=== PATIENT | female | born 1970 | race Caucasian/White ===

== ENCOUNTER 2018-04-05 12:36 | Inpatient (IN) | payer MEDICAID, OTHER ==
[2018-04-05] MEDS ORDERED: Sodium Chloride 0.9% 1,000 ML IV ONE (13:18)
--- NOTE | 2018-04-05 13:18 | C.PDOC ---
History Of Present Illness 47 year old female presents to the ED with complaints of RUQ pain for 5 days. Pain is described as constant, localized, and worsening since onset. Associated with nausea and vomiting. Pain is worse after eating. Patient also reports a subjective fever. Otherwise no diarrhea, chills, or other complaints. PMH hx of kidney stones, L RENAL CYSTS Time Seen by Provider: 04/05/18 13:14 Chief Complaint (Nursing): Abdominal Pain History Per: Patient History/Exam Limitations: no limitations Onset/Duration Of Symptoms: Days Current Symptoms Are (Timing): Still Present Location Of Pain/Discomfort: RUQ Radiation Of Pain To:: None Associated Symptoms: Nausea, Vomiting Exacerbating Factors: Food Past Medical History Reviewed: Historical Data, Nursing Documentation, Vital Signs Vital Signs: Last Vital Signs Temp 99.9 F H 04/05/18 17:24 Pulse 110 H 04/05/18 17:24 Resp 22 04/05/18 17:24 BP 114/69 04/05/18 17:24 Pulse Ox 99 04/05/18 18:16 - Medical History PMH: Kidney Stones Other PMH: Left renal cysts Family History: States: No Known Family Hx - Social History Hx Tobacco Use: No Hx Alcohol Use: No Hx Substance Use: No Review Of Systems Except As Marked, All Systems Reviewed And Found Negative. Constitutional: Positive for: Fever Respiratory: Negative for: Shortness of Breath Gastrointestinal: Positive for: Nausea, Vomiting, Abdominal Pain. Negative for : Diarrhea, Hematochezia Genitourinary: Negative for: Dysuria, Frequency Musculoskeletal: Negative for: Back Pain Physical Exam - Physical Exam Appears: In Acute Distress (moderate painful distress), Other (Active vomiting on examination) Skin: Normal Color, Warm, No Rash Head: Atraumatic, Normacephalic Eye(s): bilateral: Normal Inspection Oral Mucosa: Moist Neck: Normal ROM Chest: Symmetrical Cardiovascular: Rhythm Regular, No Murmur Respiratory: Normal Breath Sounds, No Rales, No Rhonchi, No Wheezing Gastrointestinal/Abdominal: Soft, Tenderness (to right upper quadrant), No Guarding, No Rebound, Other (obese abdomen) Back: Normal Inspection Extremity: Bilateral: Atraumatic, Normal Color And Temperature, Normal ROM Pulses: Left Radial: Normal, Right Radial: Normal Neurological/Psych: Oriented x3, Normal Speech ED Course And Treatment - Laboratory Results Result Diagrams: 04/05/18 13:36 04/05/18 13:36 Interpretation Of Abnormal: NEW RENAL INSUFF; ELEV WBC W SHIFT ECG: Interpreted By Fl ECG Rhythm: Sinus Tachycardia ECG Interpretation: Abnormal Rate From EC O2 Sat by Pulse Oximetry: 99 (RA) Pulse Ox Interpretation: Normal - CT Scan/US US Abdomen Other Rad Studies (CT/US): Read By Radiologist, Radiology Report Reviewed CT/US Interpretation: Accession No. : [id number]. Patient Name / ID : GUERO DEVINE [id number] / [id number]. Exam Date : 04/05/2018 13:58:51 ( Approved ). Study Comment : Sex / Age : F / 47Y. Creator : Ajith Pichardo MD. Dictator : Ajith Pichardo MD. Enamel Burner : Electric Installer : Ajith Pichardo MD. Approver2 : Report Date : 04/05/2018 14:29:57. My Comment : . Date of service: 04/05/2018. HISTORY: abd pain ruq. COMPARISON: CT scan of the abdomen pelvis dated 03/31/2015. TECHNIQUE: Sonographic evaluation of the right upper quadrant of the abdomen. FINDINGS: LIVER: Enlarged, measuring 20.2 cm in length. Normal echogenicity of the liver parenchyma. No mass. No intrahepatic bile duct dilatation. GALLBLADDER: Unremarkable. No gallstones. COMMON BILE DUCT: Measures 3 mm. No stones. No dilatation. PANCREAS: Limited evaluation. RIGHT KIDNEY: Measures 15.1 x 5.9 x 6.8 cm in length. Moderate hydronephrosis. Normal echogenicity. No calculus or mass. AORTA: No aneurysmal dilatation. IVC: Unremarkable. OTHER FINDINGS: None . IMPRESSION : Moderate right hydronephrosis. Hepatomegaly. CT A/P Other Rad Studies (CT/US): Read By Radiologist, Radiology Report Reviewed CT/US Interpretation: Accession No. : [id number]. Patient Name / ID : GUERO DEVINE [id number] / [id number]. Exam Date : 04/05/2018 16:18:46 ( Approved ). Study Comment : Sex / Age : F / 47Y. Creator : Maricarmen Araujo. Dictator : Ajith Pichardo MD. Enamel Burner : Electric Installer : Ajith Pichardo MD. Approver2 : Report Date : 04/05/2018 16:24:59. My Comment : . Date of service: 04/05/2018. PROCEDURE: CT Abdomen and Pelvis without intravenous contrast. HISTORY: R ABD PAIN, ELEV WBC HO L RENAL CYST, STONE. COMPARISON: CT scan of the abdomen pelvis dated 03/31/2015. TECHNIQUE: Contiguous images were obtained from the domes of the diaphragms to the upper thighs without the administration of intravenous contrast. Oral contrast was not administered. Radiation dose: Total exam DLP = 1107.0 mGy-cm. This CT exam was performed using one or more of the following dose reduction techniques: Automated exposure control, adjustment of the mA and/or kV according to patient size, and/ or use of iterative reconstruction technique. FINDINGS: LOWER THORAX: Inferior right upper lobe calcified granuloma. Bibasilar dependent atelectasis. No focal consolidation or pleural effusion. Cardiomegaly. LIVER: Unremarkable. No gross lesion or ductal dilatation. GALLBLADDER AND BILE DUCTS : Unremarkable. PANCREAS: Unremarkable. No gross lesion or ductal dilatation. SPLEEN: Unremarkable. ADRENALS: Unremarkable. No mass. KIDNEYS AND URETERS: 3 x 3 x 5 right proximal ureteral calculus causing moderate to severe hydronephrosis. Large bilateral renal cysts. Nonobstructive left-sided calculi redemonstrated. Indwelling double-J ureteral stent with proximal pigtail in a lower pole calyx and distal pigtail in the bladder No solid mass. VASCULATURE: Unremarkable. No aortic aneurysm. BOWEL: Unremarkable. No obstruction. No gross mural thickening. APPENDIX: Unremarkable. Normal appendix. PERITONEUM: Unremarkable. No free fluid. No free air. LYMPH NODES: Unremarkable. No enlarged lymph nodes. BLADDER: Stable 3 mm calculus at the junction of the urachus and bladder. REPRODUCTIVE: Unremarkable. BONES: No acute fracture. OTHER FINDINGS: None. IMPRESSION: Moderate to severe right- sided hydronephrosis secondary to a 3 x 3 x 5 mm proximal right ureteral calculus with extensive perinephric stranding. Superimposed infection cannot be excluded. Additional stable findings as above. Progress - Re-Evaluation Re-evaluation Note: 04/05/18 14:25 SP MORPHINE. FEELS BETTER. PENDING IVF, VBG 04/05/18 17:16 CO CHILLS, HEADACHE. NEW HYPOTENSION. REPEAT IVF IN PROGRESS. D/W DR Muna SALINAS WILL ADMIT 04/05/18 17:19 D/W DR KORTNEY BERRIOS MARKETING AUTOMATION ANALYST AWARE OF ER FINDINGS WILL CONSULT - Data Reviewed Data Reviewed: Lab, Diagnostic imaging - Critical Care Citical Care: Excluding Proc Time Critical Care Time: 90 minutes - Continuity of Care Discussed patient case with:: Patient, On-call PMD-pt unassigned Discussed pt. case with [employer] product consultant/specialty: Urology Medical Decision Making Medical Decision Making: Impression: Abdominal pain, r/o acute cholecystitis Plan: --Labs --US Abdomen [RUQ] --IV fluids --4 mg IV Morphine --4 mg IV Zofran Abdominal ultrasound findings reviewed with patient. Ordered CT A/P. Disposition Counseled Patient/Family Regarding: Studies Performed, Diagnosis - Disposition Disposition: HOSPITALIZED Disposition Time: 17:20 Condition: SERIOUS - POA Present On Arrival: Poor Glycemic Control - Clinical Impression Clinical Impression: Hydroureteronephrosis, Sepsis - Scribe Statement The provider has reviewed the documentation as recorded by the Alesia Vicente Provider Attestation: All medical record entries made by the Alesia were at my direction and personally dictated by me. I have reviewed the chart and agree that the record accurately reflects my personal performance of the history, physical exam, medical decision making, and the department course for this patient. I have also personally directed, reviewed, and agree with the discharge instructions and disposition.
[2018-04-05] MEDS ORDERED: Morphine 4 MG/ML VIAL ONE ×2 (13:39→16:44)
[2018-04-05 13:48] LABS: BASO % 0.2 % (0.0-2.0); HEMOGLOBIN 11.8 g/dL (11.0-16.0); LYMPH # 0.8 K/uL (1.0-4.3); LYMPH % 3.6 % (20.0-40.0); MEAN CORPUSCULAR HGB CONC 33.3 g/dL (33.0-37.0); MEAN PLATELET VOLUME 9.9 fL (7.2-11.7); MONO # 1.3 K/uL (0.0-0.8); MONO % 5.9 % (0.0-10.0); NEUT # 20.5 K/uL (1.8-7.0); NEUT % 90.3 % (50.0-75.0); PLATELET COUNT 214 K/uL (130-400); RED CELL DISTRIBUTION WIDTH 14.5 % (11.5-14.5)
[2018-04-05 13:52] LABS: MEAN CELL VOLUME 83.9 fL (81.0-99.0); WHITE BLOOD COUNT 22.7 K/uL (4.8-10.8)
[2018-04-05] MEDS ORDERED: Piperacillin/Tazobact 3.375 gm 100 ML IV STA (13:53)
[2018-04-05 13:59] LABS: ALB/GLOB RATIO 1.1 (1.0-2.1); ALBUMIN 4.1 g/dL (3.5-5.0); CALCIUM 9.6 mg/dl (8.6-10.4)
[2018-04-05 14:18] LABS: BANDS 4 % (0-2); LYMPHOCYTE 5 % (20-40); MONOCYTE 5 % (0-10); NEUTROPHIL 86 % (50-75); PLATELET ESTIMATE NORMAL (NORMAL); TOTAL CELLS COUNTED 100
[2018-04-05 14:20] LABS: ANISOCYTOSIS SLIGHT
[2018-04-05] MEDS ORDERED: Piperacillin/Tazobact 3.375 gm 100 ML IVPB ONE (14:28)
--- NOTE | 2018-04-05 14:31 | US ---
Date of service: 04/05/2018 HISTORY: abd pain ruq COMPARISON: CT scan of the abdomen pelvis dated 03/31/2015. TECHNIQUE: Sonographic evaluation of the right upper quadrant of the abdomen. FINDINGS: LIVER: Enlarged, measuring 20.2 cm in length. Normal echogenicity of the liver parenchyma. No mass. No intrahepatic bile duct dilatation. GALLBLADDER: Unremarkable. No gallstones. COMMON BILE DUCT: Measures 3 mm. No stones. No dilatation. PANCREAS: Limited evaluation. RIGHT KIDNEY: Measures 15.1 x 5.9 x 6.8 cm in length. Moderate hydronephrosis. Normal echogenicity. No calculus or mass. AORTA: No aneurysmal dilatation. IVC: Unremarkable. OTHER FINDINGS: None . IMPRESSION: Moderate right hydronephrosis. Hepatomegaly.
[2018-04-05 14:52] LABS: HCG,QUALITATIVE URINE NEGATIVE (NEGATIVE)
[2018-04-05 14:56] LABS: VENOUS BLOOD GAS PCO2 46 mmHg (40-60); VENOUS BLOOD GAS PO2 15 mm/Hg (30-55)
[2018-04-05 15:06] LABS: SQUAMOUS EPITHIAL 3 /hpf (0-5); URINE BACTERIA MANY (<OCC); URINE BILIRUBIN NEGATIVE (NEGATIVE); URINE BLOOD 3+ (NEGATIVE); URINE CLARITY Turbid (Clear); URINE COLOR Amber (YELLOW); URINE GLUCOSE (UA) NORMAL (Normal); URINE LEUKOCYTE ESTERASE 3+ Leu/uL (Negative); URINE PROTEIN 2+ mg/dL (NEGATIVE); URINE UROBILINOGEN NORMAL mg/dL (0.2-1.0); WBC CLUMPS MANY /hpf
[2018-04-05] MEDS ORDERED: SODIUM CHLORIDE 0.9% IV ONE (16:40)
--- NOTE | 2018-04-05 16:45 | CT ---
Date of service: 04/05/2018 PROCEDURE: CT Abdomen and Pelvis without intravenous contrast HISTORY: R ABD PAIN, ELEV WBC HO L RENAL CYST, STONE COMPARISON: CT scan of the abdomen pelvis dated 03/31/2015. TECHNIQUE: Contiguous images were obtained from the domes of the diaphragms to the upper thighs without the administration of intravenous contrast. Oral contrast was not administered. Radiation dose: Total exam DLP = 1107.0 mGy-cm. This CT exam was performed using one or more of the following dose reduction techniques: Automated exposure control, adjustment of the mA and/or kV according to patient size, and/or use of iterative reconstruction technique. FINDINGS: LOWER THORAX: Inferior right upper lobe calcified granuloma. Bibasilar dependent atelectasis. No focal consolidation or pleural effusion. Cardiomegaly. LIVER: Unremarkable. No gross lesion or ductal dilatation. GALLBLADDER AND BILE DUCTS: Unremarkable. PANCREAS: Unremarkable. No gross lesion or ductal dilatation. SPLEEN: Unremarkable. ADRENALS: Unremarkable. No mass. KIDNEYS AND URETERS: 3 x 3 x 5 right proximal ureteral calculus causing moderate to severe hydronephrosis. Large bilateral renal cysts. Nonobstructive left-sided calculi redemonstrated. Indwelling double-J ureteral stent with proximal pigtail in a lower pole calyx and distal pigtail in the bladder No solid mass. VASCULATURE: Unremarkable. No aortic aneurysm. BOWEL: Unremarkable. No obstruction. No gross mural thickening. APPENDIX: Unremarkable. Normal appendix. PERITONEUM: Unremarkable. No free fluid. No free air. LYMPH NODES: Unremarkable. No enlarged lymph nodes. BLADDER: Stable 3 mm calculus at the junction of the urachus and bladder. REPRODUCTIVE: Unremarkable. BONES: No acute fracture. OTHER FINDINGS: None. IMPRESSION: Moderate to severe right-sided hydronephrosis secondary to a 3 x 3 x 5 mm proximal right ureteral calculus with extensive perinephric stranding. Superimposed infection cannot be excluded. Additional stable findings as above.
[2018-04-05] MEDS ORDERED: Lidocaine 136 MG in Sodium Chloride 0.9% 100 ML IV STA (17:15)
[2018-04-05 18:40] LABS: VENOUS BLOOD GAS BASE EXCESS -3.5 mmol/L (0.0-2.0); VENOUS BLOOD GAS PCO2 41 mmHg (40-60); VENOUS BLOOD GAS PO2 21 mm/Hg (30-55); VENOUS BLOOD PH 7.34 (7.32-7.43)
[2018-04-05 19:49] LABS: CREATININE, RANDOM URINE 116.1 mg/dL
--- NOTE | 2018-04-05 20:26 | CP.PCM.HP ---
<Evelyne Xavier - Last Filed: 04/05/18 20:03> History of Present Illness - History of Present Illness History of Present Illness: cc: abdominal pain Ms. Mercado is a 47 year old female PMH nephrolithiasis who comes in to the [facility] ED today for fever, chills, and right sided abdominal pain x5 days. She lives in a constant state of pain in her abdomen and head for which she takes 4 Extra Strength Tylenol every day. Her constant subjective fever started on Monday night, 5 days ago. Since then, she's felt chills, increased headache proportional to her fluctuating abdominal pain. It originates in her right back, radiating around the side toward the right upper quadrant, ending at midline. It does not radiate across to the left, or down toward her groin. When the pain is especially bad, she admits chest pain, palpitations, and short of breath. She currently rates the pain 5/10, but states it is 9/10 pain at it' s worst. She describes the pain as someone pulling her organs around her insides. It was not relieved by her normal Tylenol, nor additional Motrin. She has been unable to keep down food or drink for this time despite feeling hungry and thirsty. She vomits approximately 7 times a day whatever she eats or drinks. Admits to diaphoresis, weakness, fatigue, dizziness, lightheadedness, dry cough, dysphagia, 30lb weight loss this year. Denies hematematous, hematuria , hematochezia, melena, dysuria, change in frequency, odynophagia, recent travel , sick contacts. ED Course: Tylenol 975mg, Toradol 30mg, Morphine 4mg x2, Zofran 4mg, Zosyn 3.375 , NS 5.5L total, Flomax 0.4mg PMH: nephrolithiasis, hypertension (from chart review) PSxH: unspecified kidney surgery 2011, uretal stent placement 2015, lithotripsy 2016 Home Meds: Tylenol 500mg po qid Allergies: NKDA FamHx: Mother [place] @ 74yo - , Father unknown, Sister breast CA with mastectomy @ 48yo - alive SocHx: denies ever tobacco, illicit drugs, social alcohol <4 drinks/month. Lives in house with daughter and grandkids LMP: 02/28, still getting regular menstrual periods. Due to start this week. Full Code Present on Admission - Present on Admission Any Indicators Present on Admission: No Review of Systems - Constitutional Constitutional: Chills, Excessive Sweating, Fatigue, Fever, Headache, Lethargy, Malaise, Weight Loss, Weakness. absent: Anorexia, Frequent Falls, Increased Appetite, Night Sweats - EENT Eyes: Blurred Vision. absent: Blind Spots, Change in Vision, Floaters, Irritation, Itchy Eyes, Pain, Tunnel Vision Ears: Tinnitus, Disequilibrium, Dizziness. absent: Abnormal Hearing Nose/Mouth/Throat: Dysphagia. absent: Epistaxis, Nasal Congestion, Nasal Discharge, Nasal Obstruction, Bleeding Gums, Dry Mouth, Hoarsness, Odynophagia, Sore Throat - Cardiovascular Cardiovascular: Chest Pain, Diaphoresis, Lightheadedness, Orthopnea, Palpitations. absent: Dyspnea, Dyspnea on Exertion, Irregular Heart Rhythm, Pain Radiating to Arm/Neck/Jaw, Leg Edema - Respiratory Respiratory: Cough, Dyspnea. absent: Wheezing, Stridor, Chest Congestion - Gastrointestinal Gastrointestinal: Dysphagia, Nausea, Vomiting. absent: Constipation, Fecal Incontinence, Heartburn, Hematemesis, Hematochezia, Melena, Odynophagia - Genitourinary Genitourinary: Difficulty Urinating, Dysuria, Hx Renal/Bladder Calculi. absent : Hematuria, Pyuria, Urinary Frequency, Urinary Urgency - Musculoskeletal Musculoskeletal: Back Pain. absent: Abnormal Gait, Joint Swelling, Muscle Cramps, Muscle Weakness, Numbness, Tingling - Integumentary Integumentary: absent: Bleeding Lesions, Rash, Unusual Bruising, Jaundice - Neurological Neurological: Disequilibrium, Dizziness, Numbness, Headaches. absent: Abnormal Speech, Behavioral Changes, Confusion, Loss of Vision, Paresthesias, Syncope, Tingling - Psychiatric Psychiatric: absent: Change in Appetite, Confusion, Depression, Hallucinations, Memory Loss - Endocrine Endocrine: Fatigue, Flushing, Palpitations - Hematologic/Lymphatic Hematologic: absent: Easy Bleeding, Easy Bruising Past Patient History - Past Medical History & Family History Pertinent Family History: Mother [place] @ 74yo - Father unknown Sister breast CA with mastectomy @ 48yo - alive - Past Social History Smoking Status: Never Smoked Alcohol: Social Drugs: Denies - RENAL Hx Kidney Stones: Yes - PSYCHIATRIC Hx Substance Use: No - SURGICAL HISTORY Hx Surgeries: Yes Other/Comment: kidney - ANESTHESIA Hx Anesthesia: Yes Hx Anesthesia Reactions: No Hx Malignant Hyperthermia: No Meds Allergies/Adverse Reactions: Allergies Allergy/AdvReac Type Severity Reaction Status Date / Time No Known Allergies Allergy Verified 04/05/18 20:53 Physical Exam - Constitutional Appears: Non-toxic, No Acute Distress - Head Exam Head Exam: ATRAUMATIC, NORMOCEPHALIC - Eye Exam Eye Exam: EOMI, Normal appearance, PERRL. absent: Conjunctival injection, Scleral icterus Pupil Exam: PERRL - ENT Exam ENT Exam: Mucous Membranes Moist, Normal Exam - Neck Exam Neck exam: Positive for: Normal Inspection. Negative for: Lymphadenopathy, Tenderness - Respiratory Exam Respiratory Exam: Clear to Auscultation Bilateral. absent: Rales, Rhonchi, Wheezes - Cardiovascular Exam Cardiovascular Exam: Tachycardia, REGULAR RHYTHM, +S1, +S2. absent: Systolic Murmur - GI/Abdominal Exam GI & Abdominal Exam: Normal Bowel Sounds, Soft, Tenderness. absent: Firm, Guarding, Rebound, Rigid Additional comments: tenderness to shallow and deep palpation radiating from the back without guarding or splintering obese - Back Exam Additional comments: right CVA tenderness. no left CVA tenderness raised area with irregular borders on the left midthoracic near the paraspinal area. approx 0.5cm with rough edges, multicolored. patient and are unaware of how long it's been there. - Neurological Exam Neurological exam: Alert, CN II-XII Intact, Normal Gait, Oriented x3, Reflexes Normal - Psychiatric Exam Psychiatric exam: Normal Affect, Normal Mood - Skin Additional comments: flushed, warm to touch, capillary refill <2sec, sweaty, intact Results - Vital Signs Recent Vital Signs: Last Vital Signs Temp 99.9 F H 04/05/18 17:24 Pulse 110 H 04/05/18 17:24 Resp 22 04/05/18 17:24 BP 114/69 04/05/18 17:24 Pulse Ox 99 04/05/18 18:47 - Labs Result Diagrams: 04/05/18 13:36 04/05/18 13:36 Labs: Laboratory Results - last 24 hr 04/05/18 04/05/18 04/05/18 13:36 13:36 14:37 WBC 22.7 H D RBC 4.20 Hgb 11.8 Hct 35.3 MCV 83.9 D MCH 28.0 MCHC 33.3 RDW 14.5 Plt Count 214 MPV 9.9 Neut % (Auto) 90.3 H Lymph % (Auto) 3.6 L [place] % (Auto) 5.9 Eos % (Auto) 0.0 Baso % (Auto) 0.2 Neut # (Auto) 20.5 H Lymph # (Auto) 0.8 L [place] # (Auto) 1.3 H Eos # (Auto) 0.0 Baso # (Auto) 0.0 Neutrophils % (Manual) 86 H Band Neutrophils % 4 H Lymphocytes % (Manual) 5 L Monocytes % (Manual) 5 Platelet Estimate Normal Anisocytosis (manual) Slight pO2 VBG pH VBG pCO2 VBG HCO3 VBG Total CO2 VBG O2 Sat (Calc) VBG Base Excess VBG Potassium Glucose Lactate Sodium 141 Potassium 4.0 Chloride 98 Carbon Dioxide 24 Anion Gap 22 H BUN 53 H Creatinine 2.8 H Est GFR ( Amer) 22 Est GFR (Non-Af Amer) 18 Random Glucose 143 H Calcium 9.6 Total Bilirubin 0.9 AST 23 ALT 24 Alkaline Phosphatase 115 Total Protein 7.8 Albumin 4.1 Globulin 3.7 Albumin/Globulin Ratio 1.1 Lipase 35 Venous Blood Potassium Urine Color Kathleen Urine Clarity Turbid Urine pH 5.0 Ur Specific Jadwin 1.018 Urine Protein 2+ H Urine Glucose (UA) Normal Urine Ketones Negative Urine Blood 3+ H Urine Nitrate Negative Urine Bilirubin Negative Urine Urobilinogen Normal Ur Leukocyte Esterase 3+ H Urine WBC (Auto) 469 H Urine RBC (Auto) 46 H Urine WBC Clumps (Auto) Many H Ur Squamous Epith Cells 3 Urine Bacteria Many H Ur Random Creatinine Ur Random Sodium Urine HCG, Qual Negative 04/05/18 04/05/18 04/05/18 14:53 18:38 19:20 WBC RBC Hgb Hct MCV MCH MCHC RDW Plt Count MPV Neut % (Auto) Lymph % (Auto) [place] % (Auto) Eos % (Auto) Baso % (Auto) Neut # (Auto) Lymph # (Auto) [place] # (Auto) Eos # (Auto) Baso # (Auto) Neutrophils % (Manual) Band Neutrophils % Lymphocytes % (Manual) Monocytes % (Manual) Platelet Estimate Anisocytosis (manual) pO2 15 L 21 L VBG pH 7.30 L 7.34 VBG pCO2 46 41 VBG HCO3 19.6 20.4 VBG Total CO2 24.0 23.4 VBG O2 Sat (Calc) 13.5 L 37.0 L VBG Base Excess -4.0 L -3.5 L VBG Potassium 4.0 4.4 Glucose 112 H 105 Lactate 2.2 H 1.4 Sodium 139.0 139.0 Potassium Chloride 101.0 109.0 H Carbon Dioxide Anion Gap BUN Creatinine Est GFR ( Amer) Est GFR (Non-Af Amer) Random Glucose Calcium Total Bilirubin AST ALT Alkaline Phosphatase Total Protein Albumin Globulin Albumin/Globulin Ratio Lipase Venous Blood Potassium 4.0 4.4 Urine Color Urine Clarity Urine pH Ur Specific Jadwin Urine Protein Urine Glucose (UA) Urine Ketones Urine Blood Urine Nitrate Urine Bilirubin Urine Urobilinogen Ur Leukocyte Esterase Urine WBC (Auto) Urine RBC (Auto) Urine WBC Clumps (Auto) Ur Squamous Epith Cells Urine Bacteria Ur Random Creatinine 116.1 Ur Random Sodium 45 Urine HCG, Qual Assessment & Plan - Assessment and Plan (Free Text) Plan: 1) Sepsis 2/2 Pyelonephritis 2/2 Obstructive Nephrolithiasis US Abdomen (04/05) moderate right hydronephrosis CT Abdomen/Pelvis w/o Contrast (04/05) moderate to severe right sided hydronephrosis secondary to [id number] proximal right ureteral calculus with extensive perinephric stranding. Large bilateral renal cysts. Indwelling ureteral stent in place on left. On admission: WBC 22.7 with left shift, tachycardic, tachypnic, lactate 2.2H, repeat after fluids 1.3 UA (04/05) WBC 469, LE 3+, blood 3+, protein 2+, many bacteria Urine bHcg (04/05) negative Sepsis protocol followed in ED: lactate down-trending - f/u evening lactate - f/u blood culture: collected 04/05 - f/u urine culture: collected 04/05 - Meropenem 500mg IVPB q8h (started 04/05 - day 1) - NS 140mls/hr Urology consulted: Dr. Casper - help appreciated - f/u recs Tylenol 650mg po qid vickie until tomorrow -> will switch to prn Morphine 2mg IVP q6 prn for moderate pain Zofran 4mg IV q6 prn 2) Acute Renal Failure On admission: BUN 53, Cr 2.8 Baseline from previous admissions: BUN/Cr: 13/0.6 - f/u urine Cr and urine Na to calculate FeNa - f/u US renal, bilateral: ordered Monitor BUN, Cr with AM labs 3) Questionable Hx Hypertension Vital Checks q6h 4) Lashae Monitor for size/color changes - f/u in clinic for outpatient biopsy 5) Prophylaxis Measures DVT risk 4: age, sepsis, BMI Heparin 5000u sc q8 SCDs GI ppx not indicated at this time Heart Healthy Diet 2gNa - Date & Time Date: 04/05/18 Time: 18:52 <Cj Deluna - Last Filed: 04/07/18 19:40> Results - Vital Signs Recent Vital Signs: Last Vital Signs Temp 99.9 F H 04/07/18 17:27 Pulse 92 H 04/07/18 15:02 Resp 20 04/07/18 15:02 BP 143/88 04/07/18 15:02 Pulse Ox 98 04/07/18 15:02 - Labs Result Diagrams: 04/07/18 06:55 04/07/18 06:55 Labs: Laboratory Results - last 24 hr 04/06/18 04/07/18 04/07/18 13:55 00:24 00:24 WBC 11.8 H RBC 3.57 L Hgb 10.0 L Hct 30.2 L MCV 84.6 MCH 28.1 MCHC 33.3 RDW 14.4 Plt Count 171 MPV 9.4 Neut % (Auto) 84.1 H Lymph % (Auto) 10.0 L [place] % (Auto) 5.5 Eos % (Auto) 0.1 Baso % (Auto) 0.3 Neut # (Auto) 9.9 H Lymph # (Auto) 1.2 [place] # (Auto) 0.7 Eos # (Auto) 0.0 Baso # (Auto) 0.0 Sodium Potassium Chloride Carbon Dioxide Anion Gap BUN Creatinine Est GFR ( Amer) Est GFR (Non-Af Amer) Random Glucose Lactic Acid 0.9 Uric Acid Calcium Total Bilirubin AST ALT Alkaline Phosphatase Total Protein Total Protein (PEP) 5.3 L Albumin Globulin Albumin/Globulin Ratio Triglycerides Cholesterol LDL Cholesterol Direct HDL Cholesterol 04/07/18 04/07/18 06:55 06:55 WBC 12.1 H RBC 3.65 L Hgb 10.4 L Hct 31.2 L MCV 85.5 MCH 28.6 MCHC 33.5 RDW 14.7 H Plt Count 182 MPV 9.6 Neut % (Auto) 73.2 Lymph % (Auto) 18.0 L [place] % (Auto) 7.8 Eos % (Auto) 0.5 Baso % (Auto) 0.5 Neut # (Auto) 8.9 H Lymph # (Auto) 2.2 [place] # (Auto) 1.0 H Eos # (Auto) 0.1 Baso # (Auto) 0.1 Sodium 144 Potassium 3.7 Chloride 111 H Carbon Dioxide 20 L Anion Gap 16 BUN 26 H Creatinine 1.2 Est GFR ( Amer) 59 Est GFR (Non-Af Amer) 49 Random Glucose 99 Lactic Acid Uric Acid 7.9 H Calcium 9.0 Total Bilirubin 0.2 AST 23 ALT 20 Alkaline Phosphatase 110 Total Protein 6.1 L Total Protein (PEP) Albumin 2.9 L Globulin 3.2 Albumin/Globulin Ratio 0.9 L Triglycerides 238 H Cholesterol 103 LDL Cholesterol Direct 43 HDL Cholesterol 11 L Attending/Attestation - Attestation I have personally seen and examined this patient.: Yes I have fully participated in the care of the patient.: Yes I have reviewed all pertinent clinical information: Yes Notes (Text): 04/07/18 19:40 This is a late entry. History, physical, assessment and plan and all orders were gone over with the resident. Cj Deluna D.O.
[2018-04-05] MEDS: Sodium Chloride 0.9% 1,000 ML IV SCH (20:40)
[2018-04-05] MEDS: Meropenem 500 MG in Sodium Chloride 0.9% 100 ML IVPB SCH (21:50)
[2018-04-06] MEDS: Sodium Chloride 0.9% 1,000 ML IV SCH ×4 (03:00→22:45)
[2018-04-06] MEDS: Meropenem 500 MG in Sodium Chloride 0.9% 100 ML IVPB SCH ×3 (05:36→20:25)
[2018-04-06 07:54] LABS: BASO % 0.1 % (0.0-2.0); EOS % 0.3 % (0.0-4.0); HEMOGLOBIN 10.1 g/dL (11.0-16.0); LYMPH # 1.2 K/uL (1.0-4.3); LYMPH % 7.7 % (20.0-40.0); MEAN CELL VOLUME 85.7 fL (81.0-99.0); MEAN CORPUSCULAR HEMOGLOBIN 28.4 pg (27.0-31.0); MEAN CORPUSCULAR HGB CONC 33.1 g/dL (33.0-37.0); MEAN PLATELET VOLUME 9.8 fL (7.2-11.7); MONO # 0.8 K/uL (0.0-0.8); MONO % 5.3 % (0.0-10.0); NEUT # 13.1 K/uL (1.8-7.0); NEUT % 86.6 % (50.0-75.0); PLATELET COUNT 171 K/uL (130-400); RBC 3.57 Mil/uL (3.80-5.20); RED CELL DISTRIBUTION WIDTH 14.7 % (11.5-14.5); WHITE BLOOD COUNT 15.1 K/uL (4.8-10.8)
[2018-04-06 08:26] LABS: BANDS 6 % (0-2); LYMPHOCYTE 5 % (20-40); MONOCYTE 4 % (0-10); NEUTROPHIL 85 % (50-75); PLATELET ESTIMATE NORMAL (NORMAL); TOTAL CELLS COUNTED 100
[2018-04-06 08:35] LABS: ALBUMIN 2.9 g/dL (3.5-5.0); CALCIUM 8.8 mg/dl (8.6-10.4)
--- NOTE | 2018-04-06 11:11 | US ---
Date of service: 04/06/2018 PROCEDURE: Ultrasound of the Kidneys HISTORY: ARF, pyelonephritis, Hx calculi COMPARISON: CT scan of the abdomen and pelvis dated 04/05/2018. TECHNIQUE: Sonogram of the kidneys. FINDINGS: RIGHT KIDNEY: Measures: 14.7 x 7.3 x 7.2 cm. Moderate hydronephrosis. Normal in size, contour and echogenicity. No stone or solid mass lesion visualized. LEFT KIDNEY: Measures: 16.7 x 8.0 x 8.4 cm. 1.8 cm midpole calculus. Moderate hydronephrosis and/or renal cysts. Partially imaged double-J ureteral stent with pigtails in a lower pole calyx and the urinary bladder. Normal in size, contour and echogenicity. No solid mass lesion or hydronephrosis visualized. OTHER FINDINGS: None. IMPRESSION: Bilateral moderate hydronephrosis. Left-sided renal cysts. 1.8 cm left midpole calculus. Indwelling left double-J ureteral stent.
[2018-04-06] MEDS: Saccharomyces Boulardi 250 mg Cap PO SCH ×2 (11:35→17:47)
--- NOTE | 2018-04-06 14:13 | CP.PCM.CON ---
History of Present Illness - History of Present Illness History of Present Illness: Patient is a 47 yo female with PMH of nephrolithiasis and obesity presents to ED for evaluation of fevers, chills, right sided abdominal pain for 5 days; nephrology consulted for worsening renal function. Patient reports her pain to be constant in nature; radiates from right flank and wraps around toward right upper quadrant. Patient reports she takes Tylenol x 4 extra strength for pain control. Patient admits to shortness of breath and palpitations when pain is 9/10. Patient states that she had a stent placed 2 years ago when she had a stone however she had no stone studies done at the time. Patient states she has been unable to keep anything down prior to hospital admission. Stated that she would vomit anytime she tried to eat or drink. Patient complains of reduced pain compared to admission but still feeling pain in right flank and right upper quadrant. She denies chest pain, shortness of breath, nausea/vomiting, constipation or diarrhea. Admits to headache, abdomen and flank pain. Review of Systems - Constitutional Constitutional: Chills, Fever, Headache - EENT Eyes: absent: Blurred Vision, Change in Vision - Cardiovascular Cardiovascular: absent: Chest Pain, Dyspnea, Dyspnea on Exertion - Respiratory Respiratory: absent: Cough, Dyspnea - Gastrointestinal Gastrointestinal: Abdominal Pain. absent: Constipation, Diarrhea, Nausea, Vomiting - Genitourinary Genitourinary: Urinary Frequency - Integumentary Integumentary: absent: Rash, Skin Ulcer - Neurological Neurological: Headaches. absent: Dizziness Past Patient History - Past Medical History & Family History Past Medical History?: Yes - Past Social History Smoking Status: Never Smoked Alcohol: Social Drugs: Denies - CARDIAC Hx Cardiac Disorders: No - PULMONARY Hx Respiratory Disorders: No - NEUROLOGICAL Hx Neurological Disorder: No - HEENT Hx HEENT Problems: No - RENAL Hx Kidney Stones: Yes - ENDOCRINE/METABOLIC Hx Endocrine Disorders: No - HEMATOLOGICAL/ONCOLOGICAL Hx Blood Disorders: No - INTEGUMENTARY Hx Dermatological Problems: No - MUSCULOSKELETAL/RHEUMATOLOGICAL Hx Musculoskeletal Disorders: No Hx Falls: No - GASTROINTESTINAL Hx Gastrointestinal Disorders: No - GENITOURINARY/GYNECOLOGICAL Hx Genitourinary Disorders: No - PSYCHIATRIC Hx Substance Use: No - SURGICAL HISTORY Hx Surgeries: Yes Other/Comment: kidney - ANESTHESIA Hx Anesthesia: Yes Hx Anesthesia Reactions: No Hx Malignant Hyperthermia: No Meds Allergies/Adverse Reactions: Allergies Allergy/AdvReac Type Severity Reaction Status Date / Time No Known Allergies Allergy Verified 04/05/18 20:53 - Medications Medications: Current Medications Acetaminophen (Tylenol 325mg Tab) 650 mg PO Q6 [facility] Stop: 04/06/18 20:00 Last Admin: 04/06/18 11:35 Dose: 650 mg Acetaminophen (Tylenol 325mg Tab) 650 mg PO Q6 PRN PRN Reason: Pain, Mild (1-3) Heparin Sodium (Porcine) (Heparin) 5,000 units SC Q8 [facility] Last Admin: 04/06/18 13:54 Dose: 5,000 units Meropenem 500 mg/ Sodium (Chloride) 100 mls @ 100 mls/hr IVPB Q8H [facility]LEXEI PRN Reason: Protocol Last Admin: 04/06/18 12:39 Dose: 100 mls/hr Sodium Chloride (Sodium Chloride 0.9%) 1,000 mls @ 140 mls/hr IV .Q7H9M [facility] Last Admin: 04/06/18 10:43 Dose: 140 mls/hr Morphine Sulfate (Morphine) 0.5 mg IV Q6 PRN PRN Reason: Pain, moderate (4-7) Morphine Sulfate (Morphine) 1 mg IVP Q6H PRN PRN Reason: Pain, severe (8-10) Ondansetron HCl (Zofran Inj) 4 mg IVP Q6H PRN PRN Reason: Nausea/Vomiting Saccharomyces Boulardii (Florastor) 250 mg PO BID [facility] Last Admin: 04/06/18 11:35 Dose: 250 mg Tamsulosin HCl (Flomax) 0.4 mg PO DAILY [facility] Last Admin: 04/06/18 13:54 Dose: 0.4 mg Physical Exam - Constitutional Appears: Well, No Acute Distress - Head Exam Head Exam: ATRAUMATIC, NORMAL INSPECTION, NORMOCEPHALIC - Eye Exam Eye Exam: EOMI, Normal appearance - ENT Exam ENT Exam: Mucous Membranes Moist, Normal Exam - Respiratory Exam Respiratory Exam: Clear to Auscultation Bilateral, NORMAL BREATHING PATTERN. absent: Respiratory Distress - Cardiovascular Exam Cardiovascular Exam: REGULAR RHYTHM, +S1, +S2 - GI/Abdominal Exam GI & Abdominal Exam: Normal Bowel Sounds, Soft. absent: Tenderness - Extremities Exam Extremities exam: Positive for: normal inspection. Negative for: pedal edema - Neurological Exam Neurological exam: Alert, Oriented x3 - Psychiatric Exam Psychiatric exam: Normal Affect, Normal Mood - Skin Skin Exam: Normal Color, Warm Results - Vital Signs Recent Vital Signs: Last Vital Signs Temp 97.8 F 04/06/18 07:15 Pulse 74 04/06/18 07:50 Resp 20 04/06/18 07:15 BP 94/67 L 04/06/18 07:15 Pulse Ox 98 04/06/18 07:15 - Labs Result Diagrams: 04/06/18 07:48 04/06/18 07:48 Labs: Laboratory Results - last 24 hr 04/05/18 04/05/18 04/05/18 13:36 14:37 14:53 WBC RBC Hgb Hct MCV MCH MCHC RDW Plt Count MPV Neut % (Auto) Lymph % (Auto) Me[place] % (Auto) Eos % (Auto) Baso % (Auto) Neut # (Auto) Lymph # (Auto) [place] # (Auto) Eos # (Auto) Baso # (Auto) Neutrophils % (Manual) 86 H Band Neutrophils % 4 H Lymphocytes % (Manual) 5 L Monocytes % (Manual) 5 Platelet Estimate Normal RBC Morphology Anisocytosis (manual) Slight pO2 15 L VBG pH 7.30 L VBG pCO2 46 VBG HCO3 19.6 VBG Total CO2 24.0 VBG O2 Sat (Calc) 13.5 L VBG Base Excess -4.0 L VBG Potassium 4.0 Sodium 139.0 Chloride 101.0 Glucose 112 H Lactate 2.2 H Potassium Carbon Dioxide Anion Gap BUN Creatinine Est GFR ( Amer) Est GFR (Non-Af Amer) Random Glucose Lactic Acid Calcium Total Bilirubin AST ALT Alkaline Phosphatase Total Protein Albumin Globulin Albumin/Globulin Ratio Venous Blood Potassium 4.0 Urine Color Kathleen Urine Clarity Turbid Urine pH 5.0 Ur Specific [place] 1.018 Urine Protein 2+ H Urine Glucose (UA) Normal Urine Ketones Negative Urine Blood 3+ H Urine Nitrate Negative Urine Bilirubin Negative Urine Urobilinogen Normal Ur Leukocyte Esterase 3+ H Urine WBC (Auto) 469 H Urine RBC (Auto) 46 H Urine WBC Clumps (Auto) Many H Ur Squamous Epith Cells 3 Urine Bacteria Many H Ur Random Creatinine Ur Random Sodium Urine HCG, Qual Negative 04/05/18 04/05/18 04/05/18 18:38 19:20 21:27 WBC RBC Hgb Hct MCV MCH MCHC RDW Plt Count MPV Neut % (Auto) Lymph % (Auto) Meeker % (Auto) Eos % (Auto) Baso % (Auto) Neut # (Auto) Lymph # (Auto) Meeker # (Auto) Eos # (Auto) Baso # (Auto) Neutrophils % (Manual) Band Neutrophils % Lymphocytes % (Manual) Monocytes % (Manual) Platelet Estimate RBC Morphology Anisocytosis (manual) pO2 21 L VBG pH 7.34 VBG pCO2 41 VBG HCO3 20.4 VBG Total CO2 23.4 VBG O2 Sat (Calc) 37.0 L VBG Base Excess -3.5 L VBG Potassium 4.4 Sodium 139.0 Chloride 109.0 H Glucose 105 Lactate 1.4 Potassium Carbon Dioxide Anion Gap BUN Creatinine Est GFR ( Amer) Est GFR (Non-Af Amer) Random Glucose Lactic Acid 1.2 Calcium Total Bilirubin AST ALT Alkaline Phosphatase Total Protein Albumin Globulin Albumin/Globulin Ratio Venous Blood Potassium 4.4 Urine Color Urine Clarity Urine pH Ur Specific [place] Urine Protein Urine Glucose (UA) Urine Ketones Urine Blood Urine Nitrate Urine Bilirubin Urine Urobilinogen Ur Leukocyte Esterase Urine WBC (Auto) Urine RBC (Auto) Urine WBC Clumps (Auto) Ur Squamous Epith Cells Urine Bacteria Ur Random Creatinine 116.1 Ur Random Sodium 45 Urine HCG, Qual 04/06/18 04/06/18 07:48 07:48 WBC 15.1 H RBC 3.57 L Hgb 10.1 L Hct 30.6 L MCV 85.7 MCH 28.4 MCHC 33.1 RDW 14.7 H Plt Count 171 MPV 9.8 Neut % (Auto) 86.6 H Lymph % (Auto) 7.7 L Meeker % (Auto) 5.3 Eos % (Auto) 0.3 Baso % (Auto) 0.1 Neut # (Auto) 13.1 H Lymph # (Auto) 1.2 Meeker # (Auto) 0.8 Eos # (Auto) 0.0 Baso # (Auto) 0.0 Neutrophils % (Manual) 85 H Band Neutrophils % 6 H Lymphocytes % (Manual) 5 L Monocytes % (Manual) 4 Platelet Estimate Normal RBC Morphology Normal Anisocytosis (manual) pO2 VBG pH VBG pCO2 VBG HCO3 VBG Total CO2 VBG O2 Sat (Calc) VBG Base Excess VBG Potassium Sodium 144 Chloride 110 H Glucose Lactate Potassium 4.2 Carbon Dioxide 23 Anion Gap 15 BUN 42 H Creatinine 1.9 H Est GFR ( Amer) 35 Est GFR (Non-Af Amer) 29 Random Glucose 111 H Lactic Acid Calcium 8.8 Total Bilirubin 0.4 AST 15 ALT 19 Alkaline Phosphatase 88 Total Protein 5.9 L Albumin 2.9 L D Globulin 3.0 Albumin/Globulin Ratio 1.0 Venous Blood Potassium Urine Color Urine Clarity Urine pH Ur Specific [place] Urine Protein Urine Glucose (UA) Urine Ketones Urine Blood Urine Nitrate Urine Bilirubin Urine Urobilinogen Ur Leukocyte Esterase Urine WBC (Auto) Urine RBC (Auto) Urine WBC Clumps (Auto) Ur Squamous Epith Cells Urine Bacteria Ur Random Creatinine Ur Random Sodium Urine HCG, Qual Assessment & Plan - Assessment and Plan (Free Text) Assessment: Patient is a 47 yo female with PMH of nephrolithiasis w/ left ureteral stent presents for evaluation of fevers, chills, and right sided flank pain; nephro consult for acute kidney injury. Plan: Acute Kidney Injury Likely secondary to obstructive uropathy from renal stones Renal U/S shows bilateral hydronephrosis with left renal cysts and left midpole calculus with left ureteral stent CT scan shows moderate to severe right-sided hydronephrosis secondary to a [id number] proximal ureteral calculus with extensive prenipehric stranding Tamsulosin 0.4 mg daily to improve stone retrieval Urine creatinine 116.1, urine sodium 45, FENA = 0.5; suggests pre-renal etiology Hypovolemic volume status, Electrolyte stable Continue IVF Pain control; avoid nephrotoxic agents Stone Studies- given bedpan and instructed to urinate there Ordered A1c, lipid panel, uric acid level for AM UTI 04/05 U/A shows 3+ leukocyte esterase, 3+ blood, 2+ protein, 469 WBC, 46 RBC, nitrate negative Continue meropenem for ESBL infections
[2018-04-06 14:21] LABS: COMPLEMENT C4 33.6 mg/dL (14.0-44.0)
--- NOTE | 2018-04-06 14:34 | CP.PCM.PN ---
<Jessica Lyon P - Last Filed: 04/06/18 22:22> Subjective - Date & Time of Evaluation Date of Evaluation: 04/06/18 Time of Evaluation: 08:00 - Subjective Subjective: PGY-1 medicine note for hospitalist service. Patient seen and evaluated at bedside. States she feels much better than yesterday, however still complains of R flank pain. States she is able to eat and is voiding normally. States fevers have resolved. Denies nausea, vomiting, dysuria, frequency, hematuria. Objective - Vital Signs/Intake and Output Vital Signs (last 24 hours): Temp Pulse Resp BP Pulse Ox 97.8 F 74 20 94/67 L 98 04/06/18 07:15 04/06/18 07:50 04/06/18 07:15 04/06/18 07:15 04/06/18 07:15 Intake and Output: 04/06/18 04/06/18 06:59 18:59 Intake Total 250 Balance 250 - Medications Medications: Current Medications Acetaminophen (Tylenol 325mg Tab) 650 mg PO Q6 [facility] Stop: 04/06/18 20:00 Last Admin: 04/06/18 11:35 Dose: 650 mg Acetaminophen (Tylenol 325mg Tab) 650 mg PO Q6 PRN PRN Reason: Pain, Mild (1-3) Heparin Sodium (Porcine) (Heparin) 5,000 units SC Q8 [facility] Last Admin: 04/06/18 13:54 Dose: 5,000 units Meropenem 500 mg/ Sodium (Chloride) 100 mls @ 100 mls/hr IVPB Q8H [facility] PRN Reason: Protocol Last Admin: 04/06/18 12:39 Dose: 100 mls/hr Sodium Chloride (Sodium Chloride 0.9%) 1,000 mls @ 140 mls/hr IV .Q7H9M [facility] Last Admin: 04/06/18 10:43 Dose: 140 mls/hr Morphine Sulfate (Morphine) 0.5 mg IV Q6 PRN PRN Reason: Pain, moderate (4-7) Morphine Sulfate (Morphine) 1 mg IVP Q6H PRN PRN Reason: Pain, severe (8-10) Ondansetron HCl (Zofran Inj) 4 mg IVP Q6H PRN PRN Reason: Nausea/Vomiting Saccharomyces Boulardii (Florastor) 250 mg PO BID [facility] Last Admin: 04/06/18 11:35 Dose: 250 mg Tamsulosin HCl (Flomax) 0.4 mg PO DAILY [facility] Last Admin: 04/06/18 13:54 Dose: 0.4 mg - Labs Labs: 04/06/18 07:48 04/06/18 07:48 - Head Exam Head Exam: ATRAUMATIC, NORMOCEPHALIC - Eye Exam Eye Exam: EOMI, Normal appearance - ENT Exam ENT Exam: Mucous Membranes Moist - Neck Exam Neck Exam: Full ROM - Respiratory Exam Respiratory Exam: Clear to Ausculation Bilateral, NORMAL BREATHING PATTERN. absent: Rales, Rhonchi, Wheezes - Cardiovascular Exam Cardiovascular Exam: REGULAR RHYTHM, +S1, +S2 - GI/Abdominal Exam GI & Abdominal Exam: Soft, Normal Bowel Sounds. absent: Tenderness Additional comments: CVA tenderness on the R - Extremities Exam Extremities Exam: Full ROM. absent: Pedal Edema, Tenderness - Back Exam Back Exam: tenderness - Neurological Exam Neurological Exam: Alert, Awake, Oriented x3 - Psychiatric Exam Psychiatric exam: Normal Affect, Normal Mood - Skin Skin Exam: Dry, Normal Color, Warm Assessment and Plan - Assessment and Plan (Free Text) Plan: 1) Sepsis 2/2 Pyelonephritis 2/2 Obstructive Nephrolithiasis US Abdomen (04/05) moderate right hydronephrosis CT Abdomen/Pelvis w/o Contrast (04/05) moderate to severe right sided hydronephrosis secondary to [id number] proximal right ureteral calculus with extensive perinephric stranding. Large bilateral renal cysts. Indwelling ureteral stent in place on left. On admission: WBC 22.7 with left shift, tachycardic, tachypnic, lactate 2.2H, repeat after fluids 1.3 UA (04/05) WBC 469, LE 3+, blood 3+, protein 2+, many bacteria Urine bHcg (04/05) negative KUB 04/06/18: redemonstration of L renal calcifications. Sepsis protocol followed in ED: lactate down-trending - evening lactate: 1.2 - blood culture: No growth 24H - urine culture: gram + isa - Meropenem 500mg IVPB q8h (started 04/05 - day 1) - NS 140mls/hr Urology consulted: Dr. Casper - help appreciated -recommends lithotripsy Tylenol 650mg po Q6 prn Morphine 2mg IVP q6 prn for moderate pain Zofran 4mg IV q6 prn 2) Acute Renal Failure On admission: BUN 53, Cr 2.8 Baseline from previous admissions: BUN/Cr: 13/0.6 -urine Cr and urine Na to calculate FeNa: 45/116.1= .005 -US renal, bilateral: bilateral moderate hydronephrosis. L sided renal cysts. 1.8cm L midpole calculus. Indwelling L double J ureteral stent. BUN/Cr downtrendin/2.8-> 42/1.9 3) Questionable Hx Hypertension Vital Checks q6h 4) Lashae Monitor for size/color changes - f/u in clinic for outpatient biopsy 5) Prophylaxis Measures DVT risk 4: age, sepsis, BMI Heparin 5000u sc q8 SCDs GI ppx not indicated at this time Heart Healthy Diet 2gNa <Cj Deluna - Last Filed: 04/07/18 19:42> Objective - Vital Signs/Intake and Output Vital Signs (last 24 hours): Temp Pulse Resp BP Pulse Ox 99.9 F H 92 H 20 143/88 98 04/07/18 17:27 04/07/18 15:02 04/07/18 15:02 04/07/18 15:02 04/07/18 15:02 - Medications Medications: Current Medications Acetaminophen (Tylenol 325mg Tab) 650 mg PO Q6 PRN PRN Reason: Pain, Mild (1-3) Last Admin: 04/07/18 16:08 Dose: 650 mg Acetaminophen (Tylenol 325mg Tab) 650 mg PO Q6 PRN PRN Reason: temp. 100.6 and above Heparin Sodium (Porcine) (Heparin) 5,000 units SC Q8 [facility] Last Admin: 04/07/18 13:53 Dose: 5,000 units Meropenem 500 mg/ Sodium (Chloride) 100 mls @ 100 mls/hr IVPB Q8H [facility] PRN Reason: Protocol Last Admin: 04/07/18 12:53 Dose: 100 mls/hr Sodium Chloride (Sodium Chloride 0.9%) 1,000 mls @ 140 mls/hr IV .Q7H9M [facility] Last Admin: 04/07/18 12:56 Dose: 140 mls/hr Morphine Sulfate (Morphine) 0.5 mg IV Q6 PRN PRN Reason: Pain, moderate (4-7) Morphine Sulfate (Morphine) 1 mg IVP Q6H PRN PRN Reason: Pain, severe (8-10) Last Admin: 04/06/18 17:21 Dose: 1 mg Ondansetron HCl (Zofran Inj) 4 mg IVP Q6H PRN PRN Reason: Nausea/Vomiting Saccharomyces Boulardii (Florastor) 250 mg PO BID [facility] Last Admin: 04/07/18 17:26 Dose: 250 mg Tamsulosin HCl (Flomax) 0.4 mg PO DAILY [facility] Last Admin: 04/07/18 11:51 Dose: 0.4 mg - Labs Labs: 04/07/18 06:55 04/07/18 06:55 Attending/Attestation - Attestation I have personally seen and examined this patient.: Yes I have fully participated in the care of the patient.: Yes I have reviewed all pertinent clinical information, including history, physical exam and plan: Yes Notes (Text): 04/07/18 19:40 This is a late entry. Exam, assesment and plan were gone over with the resident. Cj Deluna D.O.
--- NOTE | 2018-04-06 14:38 | RAD ---
Date of service: 04/06/2018 HISTORY: kidney stones COMPARISON: CT abdomen and pelvis from 04/05 FINDINGS: The left-sided pelviureteral stent remains stable position. Again seen are multiple calcifications overlying the left renal silhouette. BOWEL: There is nonspecific bowel gas pattern. BONES: Normal. OTHER FINDINGS: None. IMPRESSION: Left-sided pelviureteral stent remains in stable position. Redemonstration of left renal calcifications.
[2018-04-06 14:58] LABS: HEPATITIS B SURFACE AG Negative (NEGATIVE)
[2018-04-06 15:04] LABS: HEPATITIS A IGM NEGATIVE (NEGATIVE); HEPATITIS B CORE AB NEGATIVE (NEGATIVE)
[2018-04-06 15:15] LABS: HEPATITIS C ANTIBODY NEGATIVE (NEGATIVE)
--- NOTE | 2018-04-06 16:56 | CP.PCM.CON ---
History of Present Illness - History of Present Illness History of Present Illness: 47 year old female comes in to the [facility] ED today for fever, chills, and right sided abdominal pain x5 days. She states that fever started 5 days ago. Referered for CURRY larry for antibiotic management Admits to diaphoresis, weakness, fatigue, dizziness, lightheadedness, dry cough , dysphagia, 30lb weight loss this year. Denies hematematous, hematuria, hematochezia, melena, dysuria, change in frequency, odynophagia, recent travel, sick contacts. PMH: nephrolithiasis, hypertension (from chart review) PSxH: unspecified kidney surgery 2011, uretal stent placement 2016, lithotripsy 2016 Home Meds: Tylenol 500mg po qid Allergies: NKDA FamHx: Mother PA @ 74yo - , Father unknown, Sister breast CA with mastectomy @ 48yo - alive SocHx: denies ever tobacco, illicit drugs, social alcohol <4 drinks/month. Lives in house with daughter and grandkids Review of Systems - Constitutional Constitutional: Chills, Fever, Headache - EENT Eyes: absent: Blurred Vision, Change in Vision - Cardiovascular Cardiovascular: absent: Chest Pain, Dyspnea, Dyspnea on Exertion - Respiratory Respiratory: absent: Cough, Dyspnea - Gastrointestinal Gastrointestinal: Abdominal Pain. absent: Constipation, Diarrhea, Nausea, Vomiting - Genitourinary Genitourinary: Urinary Frequency - Integumentary Integumentary: absent: Rash, Skin Ulcer - Neurological Neurological: Headaches. absent: Dizziness Past Patient History - Past Medical History & Family History Past Medical History?: Yes - Past Social History Smoking Status: Never Smoked Alcohol: Social Drugs: Denies - CARDIAC Hx Cardiac Disorders: No - PULMONARY Hx Respiratory Disorders: No - NEUROLOGICAL Hx Neurological Disorder: No Past Patient History - Past Medical History & Family History Past Medical History?: Yes - Past Social History Smoking Status: Never Smoked Alcohol: Social Drugs: Denies - CARDIAC Hx Cardiac Disorders: No - PULMONARY Hx Respiratory Disorders: No - NEUROLOGICAL Hx Neurological Disorder: No - HEENT Hx HEENT Problems: No - RENAL Hx Kidney Stones: Yes - ENDOCRINE/METABOLIC Hx Endocrine Disorders: No - HEMATOLOGICAL/ONCOLOGICAL Hx Blood Disorders: No - INTEGUMENTARY Hx Dermatological Problems: No - MUSCULOSKELETAL/RHEUMATOLOGICAL Hx Musculoskeletal Disorders: No Hx Falls: No - GASTROINTESTINAL Hx Gastrointestinal Disorders: No - GENITOURINARY/GYNECOLOGICAL Hx Genitourinary Disorders: No - PSYCHIATRIC Hx Substance Use: No - SURGICAL HISTORY Hx Surgeries: Yes Other/Comment: kidney - ANESTHESIA Hx Anesthesia: Yes Hx Anesthesia Reactions: No Hx Malignant Hyperthermia: No Meds Allergies/Adverse Reactions: Allergies Allergy/AdvReac Type Severity Reaction Status Date / Time No Known Allergies Allergy Verified 04/05/18 20:53 - Medications Medications: Current Medications Acetaminophen (Tylenol 325mg Tab) 650 mg PO Q6 [facility] Stop: 04/06/18 20:00 Last Admin: 04/06/18 11:35 Dose: 650 mg Acetaminophen (Tylenol 325mg Tab) 650 mg PO Q6 PRN PRN Reason: Pain, Mild (1-3) Heparin Sodium (Porcine) (Heparin) 5,000 units SC Q8 [facility] Last Admin: 04/06/18 13:54 Dose: 5,000 units Meropenem 500 mg/ Sodium (Chloride) 100 mls @ 100 mls/hr IVPB Q8H ALEXEI PRN Reason: Protocol Last Admin: 04/06/18 12:39 Dose: 100 mls/hr Sodium Chloride (Sodium Chloride 0.9%) 1,000 mls @ 140 mls/hr IV .Q7H9M [facility] Last Admin: 04/06/18 10:43 Dose: 140 mls/hr Morphine Sulfate (Morphine) 0.5 mg IV Q6 PRN PRN Reason: Pain, moderate (4-7) Morphine Sulfate (Morphine) 1 mg IVP Q6H PRN PRN Reason: Pain, severe (8-10) Ondansetron HCl (Zofran Inj) 4 mg IVP Q6H PRN PRN Reason: Nausea/Vomiting Saccharomyces Boulardii (Florastor) 250 mg PO BID [facility] Last Admin: 04/06/18 11:35 Dose: 250 mg Tamsulosin HCl (Flomax) 0.4 mg PO DAILY [facility] Last Admin: 04/06/18 13:54 Dose: 0.4 mg Physical Exam - Constitutional Appears: No Acute Distress - Head Exam Head Exam: ATRAUMATIC, NORMOCEPHALIC - Eye Exam Eye Exam: absent: Scleral icterus - ENT Exam ENT Exam: Mucous Membranes Dry, Normal External Ear Exam - Neck Exam Neck exam: Negative for: Lymphadenopathy - Respiratory Exam Respiratory Exam: Decreased Breath Sounds - Cardiovascular Exam Cardiovascular Exam: REGULAR RHYTHM, +S1, +S2 - GI/Abdominal Exam GI & Abdominal Exam: Diminished Bowel Sounds, Distended, Guarding, Rebound, Soft , Tenderness. absent: Rigid - Rectal Exam Rectal Exam: Deferred - Exam Exam: NORMAL INSPECTION - Extremities Exam Extremities exam: Positive for: pedal pulses present. Negative for: calf tenderness, pedal edema, tenderness - Back Exam Back exam: absent: CVA tenderness (L), CVA tenderness (R), paraspinal tenderness - Neurological Exam Neurological exam: Alert, CN II-XII Intact, Oriented x3, Reflexes Normal - Psychiatric Exam Psychiatric exam: Normal Mood - Skin Skin Exam: Dry Results - Vital Signs Recent Vital Signs: Last Vital Signs Temp 98.1 F 04/06/18 15:00 Pulse 81 04/06/18 15:00 Resp 20 04/06/18 15:00 BP 118/80 04/06/18 15:00 Pulse Ox 95 04/06/18 15:00 - Labs Result Diagrams: 04/06/18 07:48 04/06/18 07:48 Labs: Laboratory Results - last 24 hr 04/05/18 04/05/18 04/05/18 18:38 19:20 21:27 WBC RBC Hgb Hct MCV MCH MCHC RDW Plt Count MPV Neut % (Auto) Lymph % (Auto) Sullivan % (Auto) Eos % (Auto) Baso % (Auto) Neut # (Auto) Lymph # (Auto) Sullivan # (Auto) Eos # (Auto) Baso # (Auto) Neutrophils % (Manual) Band Neutrophils % Lymphocytes % (Manual) Monocytes % (Manual) Platelet Estimate RBC Morphology pO2 21 L VBG pH 7.34 VBG pCO2 41 VBG HCO3 20.4 VBG Total CO2 23.4 VBG O2 Sat (Calc) 37.0 L VBG Base Excess -3.5 L VBG Potassium 4.4 Sodium 139.0 Chloride 109.0 H Glucose 105 Lactate 1.4 Potassium Carbon Dioxide Anion Gap BUN Creatinine Est GFR ( Amer) Est GFR (Non-Af Amer) Random Glucose Lactic Acid 1.2 Calcium Total Bilirubin AST ALT Alkaline Phosphatase Total Protein Albumin Globulin Albumin/Globulin Ratio Venous Blood Potassium 4.4 Ur Random Creatinine 116.1 Ur Random Sodium 45 Complement C3 Complement C4 RPR Hepatitis A IgM Ab Hep Bs Antigen Hep B Core IgM Ab Hepatitis C Antibody HIV 1&2 Antibody Screen 04/06/18 04/06/18 04/06/18 07:48 07:48 13:55 WBC 15.1 H RBC 3.57 L Hgb 10.1 L Hct 30.6 L MCV 85.7 MCH 28.4 MCHC 33.1 RDW 14.7 H Plt Count 171 MPV 9.8 Neut % (Auto) 86.6 H Lymph % (Auto) 7.7 L Sullivan % (Auto) 5.3 Eos % (Auto) 0.3 Baso % (Auto) 0.1 Neut # (Auto) 13.1 H Lymph # (Auto) 1.2 Sullivan # (Auto) 0.8 Eos # (Auto) 0.0 Baso # (Auto) 0.0 Neutrophils % (Manual) 85 H Band Neutrophils % 6 H Lymphocytes % (Manual) 5 L Monocytes % (Manual) 4 Platelet Estimate Normal RBC Morphology Normal pO2 VBG pH VBG pCO2 VBG HCO3 VBG Total CO2 VBG O2 Sat (Calc) VBG Base Excess VBG Potassium Sodium 144 Chloride 110 H Glucose Lactate Potassium 4.2 Carbon Dioxide 23 Anion Gap 15 BUN 42 H Creatinine 1.9 H Est GFR ( Amer) 35 Est GFR (Non-Af Amer) 29 Random Glucose 111 H Lactic Acid Calcium 8.8 Total Bilirubin 0.4 AST 15 ALT 19 Alkaline Phosphatase 88 Total Protein 5.9 L Albumin 2.9 L D Globulin 3.0 Albumin/Globulin Ratio 1.0 Venous Blood Potassium Ur Random Creatinine Ur Random Sodium Complement C3 Complement C4 RPR Nonreactive Hepatitis A IgM Ab Hep Bs Antigen Hep B Core IgM Ab Hepatitis C Antibody HIV 1&2 Antibody Screen 04/06/18 04/06/18 04/06/18 13:55 13:55 13:55 WBC RBC Hgb Hct MCV MCH MCHC RDW Plt Count MPV Neut % (Auto) Lymph % (Auto) Sullivan % (Auto) Eos % (Auto) Baso % (Auto) Neut # (Auto) Lymph # (Auto) Sullivan # (Auto) Eos # (Auto) Baso # (Auto) Neutrophils % (Manual) Band Neutrophils % Lymphocytes % (Manual) Monocytes % (Manual) Platelet Estimate RBC Morphology pO2 VBG pH VBG pCO2 VBG HCO3 VBG Total CO2 VBG O2 Sat (Calc) VBG Base Excess VBG Potassium Sodium Chloride Glucose Lactate Potassium Carbon Dioxide Anion Gap BUN Creatinine Est GFR ( Amer) Est GFR (Non-Af Amer) Random Glucose Lactic Acid Calcium Total Bilirubin AST ALT Alkaline Phosphatase Total Protein Albumin Globulin Albumin/Globulin Ratio Venous Blood Potassium Ur Random Creatinine Ur Random Sodium Complement C3 114.0 Complement C4 33.6 RPR Hepatitis A IgM Ab Negative Hep Bs Antigen Negative Hep B Core IgM Ab Negative Hepatitis C Antibody Negative HIV 1&2 Antibody Screen Negative Assessment & Plan (1) Hydroureteronephrosis Status: Acute (2) Sepsis Status: Acute (3) Abdominal pain Status: Acute (4) Kidney stone Status: Acute (5) Renal colic on right side Status: Acute - Assessment and Plan (Free Text) Assessment: right sided pyelo nephrolithiasis will need min 14 days rx started on merrem cultures pending consider de-escalation of rx once cultures available
[2018-04-07] MEDS: Sodium Chloride 0.9% 1,000 ML IV SCH ×3 (00:30→21:30)
[2018-04-07 00:31] LABS: BASO % 0.3 % (0.0-2.0); EOS % 0.1 % (0.0-4.0); LYMPH # 1.2 K/uL (1.0-4.3); MEAN CELL VOLUME 84.6 fL (81.0-99.0); MEAN CORPUSCULAR HEMOGLOBIN 28.1 pg (27.0-31.0); MEAN CORPUSCULAR HGB CONC 33.3 g/dL (33.0-37.0); MEAN PLATELET VOLUME 9.4 fL (7.2-11.7); MONO # 0.7 K/uL (0.0-0.8); MONO % 5.5 % (0.0-10.0); NEUT # 9.9 K/uL (1.8-7.0); NEUT % 84.1 % (50.0-75.0); RBC 3.57 Mil/uL (3.80-5.20); RED CELL DISTRIBUTION WIDTH 14.4 % (11.5-14.5); WHITE BLOOD COUNT 11.8 K/uL (4.8-10.8)
--- NOTE | 2018-04-07 01:24 | CON ---
DATE: 04/06/2018 COMPREHENSIVE UROLOGIC CONSULTATION TIME OF CONSULTATION: Roughly 1:45 p.m. BRIEF HISTORY: The patient is a 47-year-old female with a history of kidney stone disease for at least seven years, status post left percutaneous nephrolithotomy with Dr. Boykin seven years ago at [facility]. More recently in 09/2017, the patient had a cystoscopy with insertion of left ureteral stent done at the [facility] for obstructive kidney stone on the left side with no additional treatment, and now the patient presents to [facility] ER with a complaint of some right renal colic, found to have an elevated white count of 22,000 and urosepsis. The patient had an abdominopelvic CT done which showed an obstructing right proximal ureteral calculus measuring 3 x 3 x 5 mm with moderate right hydronephrosis. She also has an indwelling left ureteral stent with moderate left hydronephrosis and a 1.8 cm left currently nonobstructing renal stone. The patient currently is moderately improved on IV antibiotics. Initially, the patient was started on Zosyn in the ER, and now the patient is on meropenem IV with her white count dropping from 22,000 down to 15,000 on IV antibiotics. The patient is very comfortable now at this hour. She has no complaint of any left-sided renal colic or pain and minimal right-sided renal colic at this hour. She is voiding urine well without complaints, and she has had no fever during this admission. She is 7, para 6 with six normal vaginal deliveries and one . She did also have some nausea and vomiting prior to admission. Her only significant past medical history is hypertension. SOCIAL HISTORY: She has no history of any tobacco use. She is a rare social drinker. ALLERGIES: SHE HAS NO KNOWN ALLERGIES TO ANY MEDICATIONS. FAMILY HISTORY: Her mother had an HI at age 74 and is now . She also has a sister with breast cancer at age 48 and is still alive. PHYSICAL EXAMINATION: Today, GENERAL: The patient is a well-developed, well-nourished obese female. She is alert. She is oriented. HEENT EXAMINATION: Grossly within normal limit. NECK: Supple. Thyroid not palpable. ABDOMEN: Soft, nondistended, nontender. No CVA tenderness. No suprapubic tenderness at this hour. LABORATORY EVALUATION: Today, 04/06/2018, shows a WBC count of 15.1, down from 22.7 on 04/05/2018. Her hemoglobin is now 10.1 and hematocrit is 30.6 with a platelet count of 171,000. Her lactate was also elevated on admission, above 3. Her chem profile shows a sodium of 144, potassium 4.2, chloride 110, CO2 of 23, BUN and creatinine are 42 and 1.9 respectively with a GFR of 29 indicating chronic kidney disease stage 4. Her random glucose is 111. Calcium 8.8. AST 15, ALT 19, alkaline phosphatase 88. Her urinalysis on 04/05/2018 showed the color was rosa, clarity was turbid, pH was 5, specific gravity 1.018, protein 2+, glucose normal, ketones negative, blood 3+, nitrites and bilirubin both negative, urobilinogen normal, leukocyte esterase 3+, wbc's 469, rbc's 46 with many wbc clumps and many bacteria per high-power field. HCG was negative. DIAGNOSTIC IMPRESSION: For this patient, 1. Acute right pyelonephritis. 2. Obstructing 3 x 3 x 5 mm proximal ureteral stone with [id number] right hydronephrosis. 3. Left kidney stone, nonobstructing, with an indwelling left ureteral stent. PLAN: Plan for this patient will be to maintain the patient on IV antibiotics and follow her WBC count and check the urine culture and sensitivities. We will also follow her BUN, creatinine, and GFR to make sure it remains stable and does not worsen. As long as the patient remains pain free, the patient can eventually be treated as an outpatient with [facility] for her kidney stones as an outpatient. If the patient's BUN and creatinine or sepsis worsens, she then will need a cystoscopy with insertion of a right ureteral stent. We will also order a KUB and renal function scan. This case was completely discussed with Dr. Cj Deluna, her hospitalist. Chin Casper MD DADA
--- NOTE | 2018-04-07 04:12 | CP.PCM.PN ---
<Evelyne Xavier - Last Filed: 04/07/18 06:51> Subjective - Date & Time of Evaluation Date of Evaluation: 04/07/18 Time of Evaluation: 04:09 - Subjective Subjective: PGY-1 Medicine Progress Note for Dr. Deluna Patient was seen and examined today at bedside in no acute distress. Nurse reports Tmax 103.1F, overnight Tylenol 650mg po stat given. Fever defervesced, patient slept comfortably through the night afterwards. Patient reports no new problems. Abdominal pain is clinically same as before. Denies chest pain, shortness of breath, nausea, vomiting, constipation, diarrhea. Objective - Vital Signs/Intake and Output Vital Signs (last 24 hours): Temp Pulse Resp BP Pulse Ox 102.9 F H 111 H 20 135/85 96 04/06/18 23:45 04/06/18 23:45 04/06/18 23:45 04/06/18 23:45 04/06/18 23:45 Intake and Output: 04/06/18 04/07/18 18:59 06:59 Intake Total 1600 Balance 1600 - Medications Medications: Current Medications Acetaminophen (Tylenol 325mg Tab) 650 mg PO Q6 PRN PRN Reason: Pain, Mild (1-3) Acetaminophen (Tylenol 325mg Tab) 650 mg PO Q6 PRN PRN Reason: temp. 100.6 and above Heparin Sodium (Porcine) (Heparin) 5,000 units SC Q8 [facility] Last Admin: 04/06/18 22:10 Dose: 5,000 units Meropenem 500 mg/ Sodium (Chloride) 100 mls @ 100 mls/hr IVPB Q8H ALEXEI PRN Reason: Protocol Last Admin: 04/06/18 20:25 Dose: 100 mls/hr Sodium Chloride (Sodium Chloride 0.9%) 1,000 mls @ 140 mls/hr IV .Q7H9M [facility] Last Admin: 04/06/18 22:45 Dose: 140 mls/hr Morphine Sulfate (Morphine) 0.5 mg IV Q6 PRN PRN Reason: Pain, moderate (4-7) Morphine Sulfate (Morphine) 1 mg IVP Q6H PRN PRN Reason: Pain, severe (8-10) Last Admin: 04/06/18 17:21 Dose: 1 mg Ondansetron HCl (Zofran Inj) 4 mg IVP Q6H PRN PRN Reason: Nausea/Vomiting Saccharomyces Boulardii (Florastor) 250 mg PO BID [facility] Last Admin: 04/06/18 17:47 Dose: 250 mg Tamsulosin HCl (Flomax) 0.4 mg PO DAILY [facility] Last Admin: 04/06/18 13:54 Dose: 0.4 mg - Labs Labs: 04/07/18 00:24 04/06/18 07:48 - Constitutional Appears: Non-toxic, No Acute Distress - Head Exam Head Exam: ATRAUMATIC, NORMOCEPHALIC - Eye Exam Eye Exam: EOMI, Normal appearance - ENT Exam ENT Exam: Mucous Membranes Moist - Respiratory Exam Respiratory Exam: Clear to Ausculation Bilateral, NORMAL BREATHING PATTERN. absent: Rales, Rhonchi, Wheezes - Cardiovascular Exam Cardiovascular Exam: REGULAR RHYTHM, +S1, +S2. absent: Murmur - GI/Abdominal Exam GI & Abdominal Exam: Soft, Normal Bowel Sounds. absent: Firm, Guarding, Tenderness - Extremities Exam Extremities Exam: Full ROM, Normal Capillary Refill, Normal Inspection. absent : Joint Swelling, Pedal Edema Additional comments: IV has good flow - Back Exam Back Exam: CVA tenderness (R) - Neurological Exam Neurological Exam: Alert, Awake, Oriented x3 - Psychiatric Exam Psychiatric exam: Normal Affect, Normal Mood - Skin Skin Exam: Dry, Intact Additional comments: flushed, warm to hot to touch Assessment and Plan - Assessment and Plan (Free Text) Plan: 1) Sepsis 2/2 Pyelonephritis 2/2 Obstructive Nephrolithiasis US Abdomen (04/05) moderate right hydronephrosis CT Abdomen/Pelvis w/o Contrast (04/05) moderate to severe right sided hydronephrosis secondary to [id number] proximal right ureteral calculus with extensive perinephric stranding. Large bilateral renal cysts. Indwelling ureteral stent in place on left. On admission: WBC 22.7 with left shift, tachycardic, tachypnic, lactate 2.2H, repeat after fluids 1.3 UA (04/05) WBC 469, LE 3+, blood 3+, protein 2+, many bacteria Urine bHcg (04/05) negative KUB (04/06) redemonstration of L renal calcifications. Sepsis protocol followed in ED: lactate down-trending - evening lactate: 1.2 - blood culture (04/05) No growth 24H - urine culture(04/05) gram negative isa - pending sensitivities - Meropenem 500mg IVPB q8h (started 04/05 - day 3) - NS 140mls/hr Urology consulted: Dr. Casper - yasmin appreciated - recommends lithotripsy, will f/u with Dr. Pierre Matute consulted: Dr. Amanda rangel appreciates - Flomax 0.4mg po daily - urine strains for stone studies - f/u Hbg A1c, Lipid panel, Uric acid ID Consulted: Dr. Brandon rangel appreciated - f/u CXR - Gentamicin 80mg IVPB given once - Cont Meropenem as above - Tylenol 650mg po Q6 prn added for fever >100.6 Tylenol 650mg po Q6 prn for mild pain Morphine 2mg IVP q6 prn for moderate pain Zofran 4mg IV q6 prn 2) Acute Renal Failure On admission: BUN 53, Cr 2.8 Baseline from previous admissions: BUN/Cr: 13/0.6 - urine Cr and urine Na to calculate FeNa: 45/116.1= .005 --> likely pre-renal etiology - US renal, bilateral: bilateral moderate hydronephrosis. L sided renal cysts. 1.8cm L midpole calculus. Indwelling L double J ureteral stent. BUN/Cr downtrending, cont to monitor 3) Questionable Hx Hypertension Vital Checks q6h 4) Lashae Monitor for size/color changes - f/u in clinic for outpatient biopsy 5) Prophylaxis Measures DVT risk 4: age, sepsis, BMI Heparin 5000u sc q8 SCDs GI ppx not indicated at this time Heart Healthy Diet 2gNa <Cj Deluna - Last Filed: 04/07/18 19:39> Objective - Vital Signs/Intake and Output Vital Signs (last 24 hours): Temp Pulse Resp BP Pulse Ox 99.9 F H 92 H 20 143/88 98 04/07/18 17:27 04/07/18 15:02 04/07/18 15:02 04/07/18 15:02 04/07/18 15:02 - Medications Medications: Current Medications Acetaminophen (Tylenol 325mg Tab) 650 mg PO Q6 PRN PRN Reason: Pain, Mild (1-3) Last Admin: 04/07/18 16:08 Dose: 650 mg Acetaminophen (Tylenol 325mg Tab) 650 mg PO Q6 PRN PRN Reason: temp. 100.6 and above Heparin Sodium (Porcine) (Heparin) 5,000 units SC Q8 [facility] Last Admin: 04/07/18 13:53 Dose: 5,000 units Meropenem 500 mg/ Sodium (Chloride) 100 mls @ 100 mls/hr IVPB Q8H ALEXEI PRN Reason: Protocol Last Admin: 04/07/18 12:53 Dose: 100 mls/hr Sodium Chloride (Sodium Chloride 0.9%) 1,000 mls @ 140 mls/hr IV .Q7H9M [facility] Last Admin: 04/07/18 12:56 Dose: 140 mls/hr Morphine Sulfate (Morphine) 0.5 mg IV Q6 PRN PRN Reason: Pain, moderate (4-7) Morphine Sulfate (Morphine) 1 mg IVP Q6H PRN PRN Reason: Pain, severe (8-10) Last Admin: 04/06/18 17:21 Dose: 1 mg Ondansetron HCl (Zofran Inj) 4 mg IVP Q6H PRN PRN Reason: Nausea/Vomiting Saccharomyces Boulardii (Florastor) 250 mg PO BID [facility] Last Admin: 04/07/18 17:26 Dose: 250 mg Tamsulosin HCl (Flomax) 0.4 mg PO DAILY [facility] Last Admin: 04/07/18 11:51 Dose: 0.4 mg - Labs Labs: 04/07/18 06:55 04/07/18 06:55 Attending/Attestation - Attestation I have personally seen and examined this patient.: Yes I have fully participated in the care of the patient.: Yes I have reviewed all pertinent clinical information, including history, physical exam and plan: Yes Notes (Text): 04/07/18 19:14 Hospitalist Progress Note Patient was seen and examined at 9:00 AM Currently upon FULL ROS: NO chest pain NO palpitations NO SOB/Cough/Wheezing NO dysphagia/odynophagia NO abdominal pain: mild RUQ pain only with deep palpation NO n/v/d/c: last bowel movement was this morning NO burning/pain with urination/excessive urination/feeling of incomplete evacuation of bladder/changes in color of urine/discharge NO paresthesias NO headaches: had episode of bifrontal headache during the night but not at the time of exam NO new changes in vision/eye pain/loss of vision NO new changes in hearing/tinnitus/hearing loss NO lightheadedness/dizziness: had episode of dizziness during the night but not at the time of exam Exam: General: AAOX3, NAD HEENT: NCA, EOMI, PERRLA, NO cervical/supraclavicular/submandibular lymphadenopathy, NO pharyngeal erythema/exudate, Nasal Turbinates are nonerythematous/nonedematous, Oral Mucosa is moist, NO thyromegaly Cardio: NS1 and NS2, NO M/R/G Resp: CTA B/L, NO R/R/W GI: BSx4, Soft, Central Obesity therefore Liver and Spleen could not be adequately palpated, NO guarding/rebound tenderness Ext: Pulses are strong and equal, Capillary Refill is 2 seconds, Extremities are noncyanotic/warm Neuro: CN II through XII are grossly intact Assessments: 1). Sepsis secondary to Pyelonephritis secondary to Nephrolithiasis CT Abdomen/Pelvis showed moderate to severe hydronephrosis with 3x3x5 right proximal ureter calculus with extensive perniphric stranding Renal U/S showed bilateral hydropnephrosis with left sided renal cyst with indwelling left double IJ ureteral stent and 1.8 cm midpole calculus KUB did not show stone on the right but confirmed the double j stent and calculus on the left Renal Scan showed evidence of obstructive uropathy on the right Meropenem 500 mg IV Q8H (one dose of Gentamicin given 04/06/18 Blood Cultures are negative to date Urine Culture shows ESBL E. coli that is sensitive to Meropenem: patient is on contact precaution Strain all urine Spoke with Urology Dr. Casper 04/06/18: treat the pyelonephritis and patient will need lithotripsy arrangement [facility] Taylor 04/07/18: WBC decreasing however episode of Fever during night of 04/06/18 2). Acute Renal Failure FNA was < 1% therefore likely prerenal IVF have normalized renal function: NS @ 140 ml/hr Flomax 0.4 mg PO 1x/day F/U Renal Failure workup: ZUNILDA with Reflex, Cecil-Bishop/Lambda with Reflex, Serum Immunofixation, Protein Electrophoresis, PTH, RPR C3, C4, Hepatitis Panel, HIV were normal/negative Nephrology Dr. Zachery Artis 3). Atypical Nevus Located on the upper thoracic paraspinal area: irregular border, rough surface, multicolored (brown and black) Explained to patient and upon admission that this will have to be biopsied as an outpatient 4). Prophylaxis Zofran 4 mg IV Q6H PRN N/V Tylenol 650 mg PO Q6H PRN Fever Heparin 5,000 Units SC Q8H and Bilateral SCDs Cj Deluna D.O. 04/07/18 19:38
[2018-04-07] MEDS: Meropenem 500 MG in Sodium Chloride 0.9% 100 ML IVPB SCH ×3 (05:26→21:45)
[2018-04-07 07:19] LABS: BASO # 0.1 K/uL (0.0-0.2); BASO % 0.5 % (0.0-2.0); EOS # 0.1 K/uL (0.0-0.7); EOS % 0.5 % (0.0-4.0); HEMOGLOBIN 10.4 g/dL (11.0-16.0); LYMPH # 2.2 K/uL (1.0-4.3); MEAN CELL VOLUME 85.5 fL (81.0-99.0); MEAN CORPUSCULAR HEMOGLOBIN 28.6 pg (27.0-31.0); MEAN CORPUSCULAR HGB CONC 33.5 g/dL (33.0-37.0); MEAN PLATELET VOLUME 9.6 fL (7.2-11.7); MONO % 7.8 % (0.0-10.0); NEUT # 8.9 K/uL (1.8-7.0); NEUT % 73.2 % (50.0-75.0); NRBC % 0.1 % (0.0-2.0); RBC 3.65 Mil/uL (3.80-5.20); RED CELL DISTRIBUTION WIDTH 14.7 % (11.5-14.5); WHITE BLOOD COUNT 12.1 K/uL (4.8-10.8)
[2018-04-07 08:17] LABS: ALB/GLOB RATIO 0.9 (1.0-2.1); ALBUMIN 2.9 g/dL (3.5-5.0); URIC ACID 7.9 mg/dL (2.2-7.5)
--- NOTE | 2018-04-07 11:12 | RAD ---
Date of service: 04/06/2018 HISTORY: fever COMPARISON: Comparison is made with 12/28/2012 FINDINGS: LUNGS: No active pulmonary disease. PLEURA: No significant pleural effusion identified, no pneumothorax apparent. CARDIOVASCULAR: Normal. OSSEOUS STRUCTURES: No significant abnormalities. VISUALIZED UPPER ABDOMEN: Normal. OTHER FINDINGS: None. IMPRESSION: No active disease.
[2018-04-07] MEDS: Saccharomyces Boulardi 250 mg Cap PO SCH ×2 (11:50→17:26)
--- NOTE | 2018-04-07 12:16 | NM ---
Date of service: 04/07/2018 PROCEDURE: Renal scan and flow study. HISTORY: bilateral renal function test COMPARISON: April 06, 2018. Renal ultrasound. Summary of findings on the comparison examination: Bilateral moderate hydronephrosis. 03/06/2018 CT abdomen and pelvis. Summary of findings on the comparison examination: 5 mm right proximal ureteral calculus causing moderate to severe hydronephrosis. Left-sided ureteral stent noted. TECHNIQUE: 15.3 mCi technetium 99 M DTPA administered intravenously. FINDINGS: Right Kidney: Flow component: Unremarkable Time to peak: 17.45 minutes Peak to T1/2 Peak: 128 minutes. Left Kidney: Flow component: Unremarkable Time to peak: 45.45 minutes Peak to T1/2 Peak: Not applicable. Split Renal Function: Right kidney 52.03 % Left kidney 47.97 % IMPRESSION: Findings consistent with obstructive uropathy on the right. Mildly diminished function on the left.
--- NOTE | 2018-04-07 23:00 | CP.PCM.PN ---
Subjective - Date & Time of Evaluation Date of Evaluation: 04/07/18 Time of Evaluation: 12:00 - Subjective Subjective: Patient reports R flank pain much improved; tolerating diet but has some nausea ; ambulating well; Objective - Vital Signs/Intake and Output Vital Signs (last 24 hours): Temp Pulse Resp BP Pulse Ox 98.5 F 92 H 20 143/88 98 04/07/18 21:50 04/07/18 15:02 04/07/18 15:02 04/07/18 15:02 04/07/18 15:02 Intake and Output: 04/07/18 04/08/18 18:59 06:59 Intake Total 1360 Balance 1360 - Medications Medications: Current Medications Acetaminophen (Tylenol 325mg Tab) 650 mg PO Q6 PRN PRN Reason: Pain, Mild (1-3) Last Admin: 04/07/18 16:08 Dose: 650 mg Acetaminophen (Tylenol 325mg Tab) 650 mg PO Q6 PRN PRN Reason: temp. 100.6 and above Heparin Sodium (Porcine) (Heparin) 5,000 units SC Q8 [facility] Last Admin: 04/07/18 21:45 Dose: 5,000 units Meropenem 500 mg/ Sodium (Chloride) 100 mls @ 100 mls/hr IVPB Q8H [facility] PRN Reason: Protocol Last Admin: 04/07/18 21:45 Dose: 100 mls/hr Sodium Chloride (Sodium Chloride 0.9%) 1,000 mls @ 140 mls/hr IV .Q7H9M [facility] Last Admin: 04/07/18 21:30 Dose: Not Given Morphine Sulfate (Morphine) 0.5 mg IV Q6 PRN PRN Reason: Pain, moderate (4-7) Morphine Sulfate (Morphine) 1 mg IVP Q6H PRN PRN Reason: Pain, severe (8-10) Last Admin: 04/06/18 17:21 Dose: 1 mg Ondansetron HCl (Zofran Inj) 4 mg IVP Q6H PRN PRN Reason: Nausea/Vomiting Saccharomyces Boulardii (Florastor) 250 mg PO BID [facility] Last Admin: 04/07/18 17:26 Dose: 250 mg Tamsulosin HCl (Flomax) 0.4 mg PO DAILY [facility] Last Admin: 04/07/18 11:51 Dose: 0.4 mg - Labs Labs: 04/07/18 06:55 04/07/18 06:55 - Constitutional Appears: Non-toxic, No Acute Distress - Eye Exam Eye Exam: absent: Scleral icterus - ENT Exam ENT Exam: Mucous Membranes Moist - Respiratory Exam Respiratory Exam: Clear to Ausculation Bilateral. absent: Respiratory Distress - Cardiovascular Exam Cardiovascular Exam: RRR, +S1, +S2 - GI/Abdominal Exam GI & Abdominal Exam: Soft. absent: Distended - Exam Additional comments: mild R CVA tenderness; - Neurological Exam Neurological Exam: Alert, Awake - Psychiatric Exam Psychiatric exam: Normal Mood. absent: Agitated - Skin Skin Exam: Warm. absent: Cyanosis Assessment and Plan (1) Acute kidney injury Assessment & Plan: Pre-renal etiology in the setting of sepsis, resolving with IVF; however, patient still spiking fevers; need to monitor carefully; -decreasing IVF to NS at 80 cc/hr (has mild non-gap acidosis likely due to NS administration); -avoid nephrotoxic agents; avoid NSAIDS for pain; Status: Acute (2) Hyperuricemia Assessment & Plan: Gives occasional gout-like symptoms affecting her foot; will start allopurinol 100 mg daily for urate lowering; will give colchicine for first few days to avoid precipitating gout attack; Status: Acute (3) Hydroureteronephrosis Assessment & Plan: Likely acute on R but chronic on L; will need to f/u with urology for L ureteral stent change at some point; should repeat renal US in a week to see if R hydro has resolved (stone apparently passed on KUB); Status: Acute (4) Sepsis Assessment & Plan: No longer hypotensive but still spiking fevers; on meropenem for E coli ESBL, no renal dose adjustment needed anymore; Status: Acute (5) Kidney stone Assessment & Plan: Extensive stone history; discussed with patient that she needs close outpatient f/u; will need ESWL for L kidney stone as well as workup to see etiology of stones; patient advised to collect any stone she passes for analysis; Status: Acute
[2018-04-08] MEDS: Sodium Chloride 0.9% 1,000 ML IV SCH ×4 (00:31→20:30)
--- NOTE | 2018-04-08 01:34 | CP.PCM.PN ---
<Evelyne Xavier - Last Filed: 04/08/18 01:31> Subjective - Date & Time of Evaluation Date of Evaluation: 04/08/18 Time of Evaluation: 01:31 - Subjective Subjective: PGY-1 Medicine Progress Note for Dr. Deluna Patient was seen and examined today at bedside in no acute distress. Nurse reports no overnight events. Patient reports great improvement in her abdominal pain and is talking comfortably on the phone. Denies chest pain, shortness of breath, nausea, vomiting, constipation, diarrhea. Objective - Vital Signs/Intake and Output Vital Signs (last 24 hours): Temp Pulse Resp BP Pulse Ox 100.6 F H 107 H 20 143/88 98 04/07/18 23:52 04/07/18 23:28 04/07/18 15:02 04/07/18 15:02 04/07/18 15:02 Intake and Output: 04/07/18 04/08/18 18:59 06:59 Intake Total 1360 Balance 1360 - Medications Medications: Current Medications Acetaminophen (Tylenol 325mg Tab) 650 mg PO Q6 PRN PRN Reason: Pain, Mild (1-3) Last Admin: 04/07/18 23:52 Dose: 650 mg Acetaminophen (Tylenol 325mg Tab) 650 mg PO Q6 PRN PRN Reason: temp. 100.6 and above Heparin Sodium (Porcine) (Heparin) 5,000 units SC Q8 [facility] Last Admin: 04/07/18 21:45 Dose: 5,000 units Meropenem 500 mg/ Sodium (Chloride) 100 mls @ 100 mls/hr IVPB Q8H [facility] PRN Reason: Protocol Last Admin: 04/07/18 21:45 Dose: 100 mls/hr Sodium Chloride (Sodium Chloride 0.9%) 1,000 mls @ 140 mls/hr IV .Q7H9M [facility] Last Admin: 04/07/18 21:30 Dose: Not Given Morphine Sulfate (Morphine) 0.5 mg IV Q6 PRN PRN Reason: Pain, moderate (4-7) Morphine Sulfate (Morphine) 1 mg IVP Q6H PRN PRN Reason: Pain, severe (8-10) Last Admin: 04/06/18 17:21 Dose: 1 mg Ondansetron HCl (Zofran Inj) 4 mg IVP Q6H PRN PRN Reason: Nausea/Vomiting Saccharomyces Boulardii (Florastor) 250 mg PO BID [facility] Last Admin: 04/07/18 17:26 Dose: 250 mg Tamsulosin HCl (Flomax) 0.4 mg PO DAILY [facility] Last Admin: 04/07/18 11:51 Dose: 0.4 mg - Labs Labs: 04/07/18 06:55 04/07/18 06:55 - Constitutional Appears: Non-toxic, No Acute Distress - Head Exam Head Exam: ATRAUMATIC, NORMOCEPHALIC - Eye Exam Eye Exam: EOMI, Normal appearance, PERRL - ENT Exam ENT Exam: Mucous Membranes Moist, Normal Exam - Respiratory Exam Respiratory Exam: Clear to Ausculation Bilateral, NORMAL BREATHING PATTERN. absent: Rales, Rhonchi, Wheezes - Cardiovascular Exam Cardiovascular Exam: REGULAR RHYTHM, +S1, +S2. absent: Gallop, Rubs, Murmur - GI/Abdominal Exam GI & Abdominal Exam: Soft, Normal Bowel Sounds. absent: Firm, Guarding, Tenderness Additional comments: obese - Extremities Exam Extremities Exam: Normal Capillary Refill, Normal Inspection. absent: Tenderness Additional comments: IV good flow - Back Exam Back Exam: CVA tenderness (R) - Neurological Exam Neurological Exam: Alert, Awake, Oriented x3 - Psychiatric Exam Psychiatric exam: Normal Affect, Normal Mood - Skin Skin Exam: Dry, Intact, Normal Color, Warm Assessment and Plan - Assessment and Plan (Free Text) Plan: 1) Sepsis 2/2 Pyelonephritis 2/2 Obstructive Nephrolithiasis US Abdomen (04/05) moderate right hydronephrosis CT Abdomen/Pelvis w/o Contrast (04/05) moderate to severe right sided hydronephrosis secondary to [id number] proximal right ureteral calculus with extensive perinephric stranding. Large bilateral renal cysts. Indwelling ureteral stent in place on left. On admission: WBC 22.7 with left shift, tachycardic, tachypnic, lactate 2.2H, repeat after fluids 1.3 UA (04/05) WBC 469, LE 3+, blood 3+, protein 2+, many bacteria Urine bHcg (04/05) negative KUB (04/06) redemonstration of L renal calcifications. Nuc Renal Scan (04/07) obstructive uropathy on the right, mildly diminished function on the left Sepsis protocol followed in ED: lactate down-trending - blood culture (04/05) No growth 48H - urine culture(04/05) ESBL - sensitive to Meropenem, patient now on contact precaution - Meropenem 500mg IVPB q8h (started 04/05 - day 4) - NS 140mls/hr Urology consulted: Dr. Casper - yasmin appreciated - recommends lithotripsy, will f/u with Dr. Pierre Matute consulted: Dr. Amanda rangel appreciates - Flomax 0.4mg po daily - urine strains for stone studies - Lipid Panel (04/07) TG 238H Chol 103 LDL 43 HDL 11L - Uric acid (04/07) 7.9H - f/u Hbg A1c ID Consulted: Dr. Brandon rangel appreciated - CXR (04/06) no active disease - Gentamicin 80mg IVPB given once - Cont Meropenem as above - Tylenol 650mg po Q6 prn added for fever >100.6 Tylenol 650mg po Q6 prn for mild pain Morphine 2mg IVP q6 prn for moderate pain Zofran 4mg IV q6 prn 2) Acute Renal Failure On admission: BUN 53, Cr 2.8 Baseline from previous admissions: BUN/Cr: 13/0.6 - urine Cr and urine Na to calculate FeNa: 45/116.1= .005 --> likely pre-renal etiology - US renal, bilateral: bilateral moderate hydronephrosis. L sided renal cysts. 1.8cm L midpole calculus. Indwelling L double J ureteral stent. F/U Renal Failure workup: ZUNILDA with Reflex, [place]/Lambda with Reflex, Serum Immunofixation, Protein Electrophoresis, PTH, RPR C3, C4, Hepatitis Panel, HIV were normal/negative BUN/Cr downtrending, cont to monitor 3) [place]ash[place] Monitor for size/color changes - f/u in clinic for outpatient biopsy 4) Prophylaxis Measures DVT risk 4: age, sepsis, BMI Heparin 5000u sc q8 SCDs GI ppx not indicated at this time Heart Healthy Diet 2gNa <Cj Deluna - Last Filed: 04/08/18 19:33> Objective - Vital Signs/Intake and Output Vital Signs (last 24 hours): Temp Pulse Resp BP Pulse Ox 98.5 F 76 20 139/91 H 97 04/08/18 15:02 04/08/18 15:02 04/08/18 15:02 04/08/18 15:02 04/08/18 15:02 Intake and Output: 04/08/18 04/09/18 18:59 06:59 Intake Total 940 Balance 940 - Medications Medications: Current Medications Acetaminophen (Tylenol 325mg Tab) 650 mg PO Q6 PRN PRN Reason: Pain, Mild (1-3) Last Admin: 04/08/18 09:21 Dose: 650 mg Acetaminophen (Tylenol 325mg Tab) 650 mg PO Q6 PRN PRN Reason: temp. 100.6 and above Allopurinol (Zyloprim) 100 mg PO DAILY [facility] Last Admin: 04/08/18 09:21 Dose: 100 mg Colchicine (Colocrys) 0.6 mg PO DAILY [facility] Stop: 04/12/18 10:01 Last Admin: 04/08/18 12:58 Dose: 0.6 mg Heparin Sodium (Porcine) (Heparin) 5,000 units SC Q8 [facility] Last Admin: 04/08/18 14:17 Dose: 5,000 units Sodium Chloride (Sodium Chloride 0.9%) 1,000 mls @ 80 mls/hr IV .[id number] [facility] Last Admin: 04/08/18 08:30 Dose: 80 mls/hr Meropenem 1 gm/ Sodium (Chloride) 100 mls @ 100 mls/hr IVPB Q8H [facility] PRN Reason: Protocol Last Admin: 04/08/18 16:22 Dose: 100 mls/hr Morphine Sulfate (Morphine) 0.5 mg IV Q6 PRN PRN Reason: Pain, moderate (4-7) Morphine Sulfate (Morphine) 1 mg IVP Q6H PRN PRN Reason: Pain, severe (8-10) Last Admin: 04/06/18 17:21 Dose: 1 mg Ondansetron HCl (Zofran Inj) 4 mg IVP Q6H PRN PRN Reason: Nausea/Vomiting Saccharomyces Boulardii (Florastor) 250 mg PO BID [facility] Last Admin: 04/08/18 17:00 Dose: 250 mg Tamsulosin HCl (Flomax) 0.4 mg PO DAILY [facility] Last Admin: 04/08/18 09:21 Dose: 0.4 mg - Labs Labs: 04/08/18 08:07 04/08/18 08:07 Attending/Attestation - Attestation I have personally seen and examined this patient.: Yes I have fully participated in the care of the patient.: Yes I have reviewed all pertinent clinical information, including history, physical exam and plan: Yes
[2018-04-08] MEDS: Meropenem 500 MG in Sodium Chloride 0.9% 100 ML IVPB SCH ×2 (05:35→12:57)
[2018-04-08 08:37] LABS: ALBUMIN 2.9 g/dL (3.5-5.0); ALT/SGPT 29 U/L (9-52); AST/SGOT 30 U/L (14-36); BLOOD UREA NITROGEN 14 mg/dL (7-17); CALCIUM 8.7 mg/dl (8.6-10.4); GFR AFRICAN-AMERICAN > 60; GFR NON-AFRICAN AMERICAN > 60
[2018-04-08 08:53] LABS: BASO # 0.1 K/uL (0.0-0.2); LYMPH # 1.7 K/uL (1.0-4.3)
--- NOTE | 2018-04-08 08:57 | CP.PCM.PN ---
Subjective - Date & Time of Evaluation Date of Evaluation: 04/08/18 Time of Evaluation: 08:30 - Subjective Subjective: Hospitalist Progress Note Patient was seen and examined at 8:30 AM Very pleasant 47 year old female who was admitted for treatment of Sepsis secondary to Pyelonephritis secondary to Nephrolithiasis. Currently upon FULL ROS: NO chest pain NO palpitations NO SOB/Cough/Wheezing NO dysphagia/odynophagia NO abdominal pain: NO longer experiencing the right upper quadrant pain even with palpation NO n/v/d/c: last bowel movement was this morning, she had 1 episode this morning of n/v right before breakfast that produced small amount of clear material however after eating breakfast there were no issues. NO burning/pain with urination/excessive urination/feeling of incomplete evacuation of bladder/changes in color of urine/discharge NO paresthesias NO headaches NO new changes in vision/eye pain/loss of vision NO new changes in hearing/tinnitus/hearing loss NO lightheadedness/dizziness Exam: General: AAOX3, NAD HEENT: NCA, EOMI, PERRLA, NO cervical/supraclavicular/submandibular lymphadenopathy, NO pharyngeal erythema/exudate, Nasal Turbinates are nonerythematous/nonedematous, Oral Mucosa is moist, NO thyromegaly Cardio: NS1 and NS2, NO M/R/G Resp: CTA B/L, NO R/R/W GI: BSx4, Soft, Central Obesity therefore Liver and Spleen could not be adequately palpated, NO guarding/rebound tenderness Ext: Pulses are strong and equal, Capillary Refill is 2 seconds, Extremities are noncyanotic/warm Neuro: CN II through XII are grossly intact Musculoskeletal: the right CVA tenderness that was present on prior exam is NO LONGER PRESENT Assessments: 1). Sepsis secondary to Pyelonephritis secondary to Nephrolithiasis CT Abdomen/Pelvis showed moderate to severe hydronephrosis with 3x3x5 right proximal ureter calculus with extensive perniphric stranding Renal U/S showed bilateral hydropnephrosis with left sided renal cyst with indwelling left double IJ ureteral stent and 1.8 cm midpole calculus KUB did not show stone on the right but confirmed the double j stent and calculus on the left Renal Scan showed evidence of obstructive uropathy on the right Meropenem 500 mg IV Q8H (one dose of Gentamicin given 04/06/18) Flomax 0.4 mg PO 1x/day Blood Cultures are negative to date Urine Culture shows ESBL E. coli that is sensitive to Meropenem: patient is on contact precaution Repeat Urine Culture ordered for 04/08/18 Strain all urine Spoke with Urology Dr. Casper 04/06/18: treat the pyelonephritis and patient will need lithotripsy arrangement by [facility] as outpatient [facility] ID Dr. Taylor Fevers during night of 04/07/18 with Tmax 100.6. 2). Acute Renal Failure FNA was < 1% therefore likely prerenal IVF have normalized renal function and acidosis has resolved: NS @ 140 ml/hr was reduced to 80 ml/hr by Nephrology Flomax 0.4 mg PO 1x/day F/U Renal Failure workup: ZUNILDA with Reflex, [place]/Lambda with Reflex, Serum Immunofixation, Protein Electrophoresis, PTH, RPR C3, C4, Hepatitis Panel, HIV were normal/negative Nephrology Dr. Zachery Patel 3). Hyperuricemia Patient complains of NO joint pain upon exam today However, Nephrology has ordered Allopurinol 100 mg PO 1x/day and Colchicine 0.6 mg PO 1x/day (for 5 doses with last dose on 04/12/18) prevent precipitation of Gout attack 4). Atypical Nevus Located on the upper thoracic paraspinal area: irregular border, rough surface, multicolored (brown and black) Explained to patient and upon admission that this will have to be biopsied as an outpatient 5). Prophylaxis Zofran 4 mg IV Q6H PRN N/V Tylenol 650 mg PO Q6H PRN Fever Heparin 5,000 Units SC Q8H and Bilateral SCDs Morphine 0.5 mg IV Q6H PRN Moderate Pain Morphine 1 mg IV Q6H PRN Severe Pain Plan which was explained to patient with the help of Amharic translation provided by Nurse Katlin Monroy: Repeat Urine Culture ordered for today. As long as repeat Urine Culture and Blood Cultures are negative and patient is fever free for at least 48 hours, then patient may be discharged on PO antibiotic of ID Dr. Taylor's choice. Patient will strain all urine even at home and save any stone produced. Patient will need to follow up with with [facility] for coordination of her health care. Specifically she will need arrangement of Lithotripsy at a stone center and Urology follow up for further workup of Nephrolithiasis arranged through the clinic. She will also need biopsy of the Atypical Nevus on her back as mentioned above. Patient expressed understanding. Cj Deluna D.O. Objective - Vital Signs/Intake and Output Vital Signs (last 24 hours): Temp Pulse Resp BP Pulse Ox 101.3 F H 83 20 149/91 H 98 04/08/18 07:57 04/08/18 07:57 04/08/18 07:57 04/08/18 07:57 04/08/18 07:57 Intake and Output: 04/08/18 04/08/18 06:59 18:59 Intake Total 1360 Balance 1360 - Medications Medications: Current Medications Acetaminophen (Tylenol 325mg Tab) 650 mg PO Q6 PRN PRN Reason: Pain, Mild (1-3) Last Admin: 04/07/18 23:52 Dose: 650 mg Acetaminophen (Tylenol 325mg Tab) 650 mg PO Q6 PRN PRN Reason: temp. 100.6 and above Allopurinol (Zyloprim) 100 mg PO DAILY [facility] Colchicine (Colocrys) 0.6 mg PO DAILY [facility] Stop: 04/12/18 10:01 Heparin Sodium (Porcine) (Heparin) 5,000 units SC Q8 [facility] Last Admin: 04/08/18 05:30 Dose: 5,000 units Meropenem 500 mg/ Sodium (Chloride) 100 mls @ 100 mls/hr IVPB Q8H [facility] PRN Reason: Protocol Last Admin: 04/08/18 05:35 Dose: 100 mls/hr Sodium Chloride (Sodium Chloride 0.9%) 1,000 mls @ 80 mls/hr IV .[id number] [facility] Morphine Sulfate (Morphine) 0.5 mg IV Q6 PRN PRN Reason: Pain, moderate (4-7) Morphine Sulfate (Morphine) 1 mg IVP Q6H PRN PRN Reason: Pain, severe (8-10) Last Admin: 04/06/18 17:21 Dose: 1 mg Ondansetron HCl (Zofran Inj) 4 mg IVP Q6H PRN PRN Reason: Nausea/Vomiting Saccharomyces Boulardii (Florastor) 250 mg PO BID [facility] Last Admin: 04/07/18 17:26 Dose: 250 mg Tamsulosin HCl (Flomax) 0.4 mg PO DAILY [facility] Last Admin: 04/07/18 11:51 Dose: 0.4 mg - Labs Labs: 04/07/18 06:55 04/08/18 08:07
[2018-04-08 08:59] LABS: BASO % 0.8 % (0.0-2.0); EOS % 0.5 % (0.0-4.0); HEMOGLOBIN 10.1 g/dL (11.0-16.0); LYMPH % 25.7 % (20.0-40.0); MEAN CELL VOLUME 83.9 fL (81.0-99.0); MEAN CORPUSCULAR HEMOGLOBIN 28.8 pg (27.0-31.0); MEAN CORPUSCULAR HGB CONC 34.3 g/dL (33.0-37.0); MEAN PLATELET VOLUME 9.6 fL (7.2-11.7); MONO # 0.7 K/uL (0.0-0.8); MONO % 10.6 % (0.0-10.0); NEUT # 4.2 K/uL (1.8-7.0); NEUT % 62.4 % (50.0-75.0); NRBC % 0.1 % (0.0-2.0); RBC 3.51 Mil/uL (3.80-5.20); RED CELL DISTRIBUTION WIDTH 14.7 % (11.5-14.5); WHITE BLOOD COUNT 6.7 K/uL (4.8-10.8)
[2018-04-08] MEDS: Saccharomyces Boulardi 250 mg Cap PO SCH ×2 (09:22→17:00)
--- NOTE | 2018-04-08 15:28 | CP.PCM.PN ---
Subjective - Date & Time of Evaluation Date of Evaluation: 04/08/18 Time of Evaluation: 08:00 - Subjective Subjective: feels better with less pain but still has fever Objective - Vital Signs/Intake and Output Vital Signs (last 24 hours): Temp Pulse Resp BP Pulse Ox 101.3 F H 83 20 149/91 H 98 04/08/18 09:21 04/08/18 07:57 04/08/18 07:57 04/08/18 07:57 04/08/18 07:57 Intake and Output: 04/08/18 04/08/18 06:59 18:59 Intake Total 1360 940 Balance 1360 940 - Medications Medications: Current Medications Acetaminophen (Tylenol 325mg Tab) 650 mg PO Q6 PRN PRN Reason: Pain, Mild (1-3) Last Admin: 04/08/18 09:21 Dose: 650 mg Acetaminophen (Tylenol 325mg Tab) 650 mg PO Q6 PRN PRN Reason: temp. 100.6 and above Allopurinol (Zyloprim) 100 mg PO DAILY [facility] Last Admin: 04/08/18 09:21 Dose: 100 mg Colchicine (Colocrys) 0.6 mg PO DAILY [facility] Stop: 04/12/18 10:01 Last Admin: 04/08/18 12:58 Dose: 0.6 mg Heparin Sodium (Porcine) (Heparin) 5,000 units SC Q8 [facility] Last Admin: 04/08/18 14:17 Dose: 5,000 units Meropenem 500 mg/ Sodium (Chloride) 100 mls @ 100 mls/hr IVPB Q8H [facility] PRN Reason: Protocol Last Admin: 04/08/18 12:57 Dose: 100 mls/hr Sodium Chloride (Sodium Chloride 0.9%) 1,000 mls @ 80 mls/hr IV .[id number] [facility] Last Admin: 04/08/18 08:30 Dose: 80 mls/hr Morphine Sulfate (Morphine) 0.5 mg IV Q6 PRN PRN Reason: Pain, moderate (4-7) Morphine Sulfate (Morphine) 1 mg IVP Q6H PRN PRN Reason: Pain, severe (8-10) Last Admin: 04/06/18 17:21 Dose: 1 mg Ondansetron HCl (Zofran Inj) 4 mg IVP Q6H PRN PRN Reason: Nausea/Vomiting Saccharomyces Boulardii (Florastor) 250 mg PO BID [facility] Last Admin: 04/08/18 09:22 Dose: 250 mg Tamsulosin HCl (Flomax) 0.4 mg PO DAILY [facility] Last Admin: 04/08/18 09:21 Dose: 0.4 mg - Labs Labs: 04/08/18 08:07 04/08/18 08:07 - Constitutional Appears: Non-toxic, Chronically Ill - Head Exam Head Exam: NORMOCEPHALIC - Eye Exam Eye Exam: PERRL - ENT Exam ENT Exam: Mucous Membranes Dry - Neck Exam Neck Exam: absent: Lymphadenopathy - Respiratory Exam Respiratory Exam: Decreased Breath Sounds - GI/Abdominal Exam GI & Abdominal Exam: Distended - Rectal Exam Rectal Exam: Deferred - Exam Exam: NORMAL INSPECTION - Back Exam Back Exam: absent: CVA tenderness (L), CVA tenderness (R) Assessment and Plan (1) Hydroureteronephrosis Status: Acute (2) Sepsis Status: Acute (3) Abdominal pain Status: Acute (4) Kidney stone Status: Acute (5) Renal colic on right side Status: Acute - Assessment and Plan (Free Text) Assessment: CT Abdomen/Pelvis showed moderate to severe hydronephrosis with 3x3x5 right proximal ureter calculus with extensive perniphric stranding Renal U/S showed bilateral hydropnephrosis with left sided renal cyst with indwelling left double IJ ureteral stent and 1.8 cm midpole calculus KUB did not show stone on the right but confirmed the double j stent and calculus on the left Renal Scan showed evidence of obstructive uropathy on the right ESBL urine blood c/s neg cont IV Rx may need long course rx as stones/ stent present and no PO Options
[2018-04-08] MEDS: Meropenem 1 GM in Sodium Chloride 0.9% 100 ML IVPB SCH ×2 (16:22→22:37)
--- NOTE | 2018-04-08 22:43 | CP.PCM.PN ---
Subjective - Date & Time of Evaluation Date of Evaluation: 04/08/18 Time of Evaluation: 19:00 - Subjective Subjective: Patient again having chills and fever; no nausea/vomiting; no more flank pain; Objective - Vital Signs/Intake and Output Vital Signs (last 24 hours): Temp Pulse Resp BP Pulse Ox 100.8 F H 76 20 139/91 H 97 04/08/18 20:00 04/08/18 15:02 04/08/18 15:02 04/08/18 15:02 04/08/18 15:02 Intake and Output: 04/08/18 04/09/18 18:59 06:59 Intake Total 940 Balance 940 - Medications Medications: Current Medications Acetaminophen (Tylenol 325mg Tab) 650 mg PO Q6 PRN PRN Reason: Pain, Mild (1-3) Last Admin: 04/08/18 20:00 Dose: 650 mg Acetaminophen (Tylenol 325mg Tab) 650 mg PO Q6 PRN PRN Reason: temp. 100.6 and above Allopurinol (Zyloprim) 100 mg PO DAILY [facility] Last Admin: 04/08/18 09:21 Dose: 100 mg Colchicine (Colocrys) 0.6 mg PO DAILY [facility] Stop: 04/12/18 10:01 Last Admin: 04/08/18 12:58 Dose: 0.6 mg Heparin Sodium (Porcine) (Heparin) 5,000 units SC Q8 [facility] Last Admin: 04/08/18 21:42 Dose: 5,000 units Sodium Chloride (Sodium Chloride 0.9%) 1,000 mls @ 80 mls/hr IV .[id number] [facility] Last Admin: 04/08/18 20:30 Dose: Not Given Meropenem 1 gm/ Sodium (Chloride) 100 mls @ 100 mls/hr IVPB Q8H [facility] PRN Reason: Protocol Last Admin: 04/08/18 22:37 Dose: 100 mls/hr Morphine Sulfate (Morphine) 0.5 mg IV Q6 PRN PRN Reason: Pain, moderate (4-7) Morphine Sulfate (Morphine) 1 mg IVP Q6H PRN PRN Reason: Pain, severe (8-10) Last Admin: 04/06/18 17:21 Dose: 1 mg Ondansetron HCl (Zofran Inj) 4 mg IVP Q6H PRN PRN Reason: Nausea/Vomiting Saccharomyces Boulardii (Florastor) 250 mg PO BID [facility] Last Admin: 04/08/18 17:00 Dose: 250 mg Tamsulosin HCl (Flomax) 0.4 mg PO DAILY [facility] Last Admin: 04/08/18 09:21 Dose: 0.4 mg - Labs Labs: 04/08/18 08:07 04/08/18 08:07 - Constitutional Appears: Non-toxic - Respiratory Exam Respiratory Exam: Clear to Ausculation Bilateral. absent: Respiratory Distress - Cardiovascular Exam Cardiovascular Exam: absent: RRR, +S1, +S2 - GI/Abdominal Exam GI & Abdominal Exam: Soft. absent: Distended, Tenderness - Extremities Exam Additional comments: no leg edema; - Neurological Exam Neurological Exam: Alert, Awake - Psychiatric Exam Psychiatric exam: Normal Mood. absent: Agitated - Skin Skin Exam: absent: Cyanosis, Warm - Additional Findings Additional findings: having rigors; Assessment and Plan (1) Sepsis Assessment & Plan: With persistent fever spikes despite appropriate antibiotics, concern for stone/ stent infection; meropenem dose increased by ID for improved renal function; -If fevers continue, should consider repeat imaging with CT abd/pelvis w/ and w/ o IV contrast looking for renal abcess; Status: Acute (2) Kidney stone Assessment & Plan: Acute on chronic presentation; R ureteral stone likely passed given resolution of flank pain although still with R sided obstruction on renal nuclear scan yesterday; also, uric acid stone may not be seen on KUB; -continue IVF, flomax; -needs extensive outpatient f/u; Status: Acute (3) Acute kidney injury Assessment & Plan: Resolved with IVF, however, still concern for sepsis induced CONSTANCE with patient having ongoing fevers; continue IVF w/ NS at 80 cc/hr; Status: Resolved (4) Hydroureteronephrosis Status: Acute (5) Hyperuricemia Assessment & Plan: Started on urate lowering med allopurinol, continue; Status: Chronic
[2018-04-09 04:47] LABS: SQUAMOUS EPITHIAL < 1 /hpf (0-5); URINE BACTERIA RARE (<OCC); URINE BILIRUBIN NEGATIVE (NEGATIVE); URINE BLOOD 2+ (NEGATIVE); URINE CLARITY Clear (Clear); URINE COLOR Straw (YELLOW); URINE GLUCOSE (UA) NORMAL (Normal); URINE LEUKOCYTE ESTERASE 1+ Leu/uL (Negative); URINE PROTEIN NEGATIVE (NEGATIVE); URINE UROBILINOGEN NORMAL mg/dL (0.2-1.0)
[2018-04-09 06:22] LABS: BASO % 0.7 % (0.0-2.0); EOS % 0.6 % (0.0-4.0); HEMOGLOBIN 9.7 g/dL (11.0-16.0); LYMPH # 1.7 K/uL (1.0-4.3); LYMPH % 26.6 % (20.0-40.0); MEAN CELL VOLUME 83.1 fL (81.0-99.0); MEAN CORPUSCULAR HEMOGLOBIN 27.6 pg (27.0-31.0); MEAN CORPUSCULAR HGB CONC 33.2 g/dL (33.0-37.0); MEAN PLATELET VOLUME 8.9 fL (7.2-11.7); MONO # 0.8 K/uL (0.0-0.8); MONO % 12.4 % (0.0-10.0); NEUT # 3.8 K/uL (1.8-7.0); NEUT % 59.7 % (50.0-75.0); NRBC % 0.1 % (0.0-2.0); RBC 3.52 Mil/uL (3.80-5.20); RED CELL DISTRIBUTION WIDTH 14.8 % (11.5-14.5); WHITE BLOOD COUNT 6.3 K/uL (4.8-10.8)
[2018-04-09 06:44] LABS: ALT/SGPT 39 U/L (9-52); AST/SGOT 31 U/L (14-36); BLOOD UREA NITROGEN 13 mg/dL (7-17); CALCIUM 8.4 mg/dl (8.6-10.4); GFR AFRICAN-AMERICAN > 60; GFR NON-AFRICAN AMERICAN > 60
--- NOTE | 2018-04-09 07:53 | CP.PCM.PN ---
<Sharri Schwartz V - Last Filed: 04/09/18 18:56> Objective - Vital Signs/Intake and Output Vital Signs (last 24 hours): Temp Pulse Resp BP Pulse Ox 99.2 F 74 20 130/90 96 04/09/18 16:08 04/09/18 16:08 04/09/18 16:08 04/09/18 16:08 04/09/18 16:08 Intake and Output: 04/09/18 04/09/18 06:59 18:59 Intake Total 1220 Balance 1220 - Medications Medications: Current Medications Acetaminophen (Tylenol 325mg Tab) 650 mg PO Q6 PRN PRN Reason: Pain, Mild (1-3) Last Admin: 04/09/18 17:53 Dose: 650 mg Acetaminophen (Tylenol 325mg Tab) 650 mg PO Q6 PRN PRN Reason: temp. 100.6 and above Last Admin: 04/09/18 04:45 Dose: 650 mg Allopurinol (Zyloprim) 100 mg PO DAILY [facility] Last Admin: 04/09/18 09:06 Dose: 100 mg Colchicine (Colocrys) 0.6 mg PO DAILY [facility] Stop: 04/12/18 10:01 Last Admin: 04/09/18 09:06 Dose: 0.6 mg Heparin Sodium (Porcine) (Heparin) 5,000 units SC Q8 [facility] Last Admin: 04/09/18 14:34 Dose: 5,000 units Sodium Chloride (Sodium Chloride 0.9%) 1,000 mls @ 80 mls/hr IV .[id number] [facility] Last Admin: 04/09/18 09:06 Dose: Not Given Meropenem 1 gm/ Sodium (Chloride) 100 mls @ 100 mls/hr IVPB Q8H ALEXEI PRN Reason: Protocol Last Admin: 04/09/18 14:35 Dose: 100 mls/hr Morphine Sulfate (Morphine) 0.5 mg IV Q6 PRN PRN Reason: Pain, moderate (4-7) Morphine Sulfate (Morphine) 1 mg IVP Q6H PRN PRN Reason: Pain, severe (8-10) Last Admin: 04/06/18 17:21 Dose: 1 mg Ondansetron HCl (Zofran Inj) 4 mg IVP Q6H PRN PRN Reason: Nausea/Vomiting Saccharomyces Boulardii (Florastor) 250 mg PO BID [facility] Last Admin: 04/09/18 18:00 Dose: 250 mg Tamsulosin HCl (Flomax) 0.4 mg PO DAILY [facility] Last Admin: 04/09/18 09:06 Dose: 0.4 mg - Labs Labs: 04/09/18 06:08 04/09/18 06:08 Attending/Attestation - Attestation I have personally seen and examined this patient.: Yes I have fully participated in the care of the patient.: Yes I have reviewed all pertinent clinical information, including history, physical exam and plan: Yes Notes (Text): Patient seen, examined, case discussed with medical staffing coordinator. Patient seen with medical staffing coordinator this morning during rounds. Patient had a MAXIMUM TEMPERATURE 101.3 Fahrenheit yesterday. Patient's antibiotic by recently changed to meropenem 1 g IV every 8. Discussed with nephrology have repeated blood cultures yesterday we'll continue to follow. Patient denies any nausea no vomiting no abdominal pain or flank pain during rounds today. Patient's white count has normalized. We will continue IV antibiotics and monitor. Assessment/Plan 1) Sepsis Pyelonephritis Nephrolithiasis Assessment/Plan * Infectious disease (Dr. Taylor) on board * Recommending for IV Abx for 21 days * Urology (Dr. Casper) on board * Nephrology (Dr. Patel) on board * CT Abdomen/Pelvis showed moderate to severe hydronephrosis with 3x3x5 right proximal ureter calculus with extensive perniphric stranding * Renal U/S showed bilateral hydropnephrosis with left sided renal cyst with indwelling left double IJ ureteral stent and 1.8 cm midpole calculus * KUB did not show stone on the right but confirmed the double j stent and calculus on the left * Renal Scan showed evidence of obstructive uropathy on the right * Meropenem 1 gm IV Q8H (active since 04/08/18) * Flomax 0.4 mg PO 1x/day * Blood Cultures (04/05/18): no growth after 4 days X2 * Urine Culture (04/05/18): E. Coli * Urine Culture (04/08/18): no growth * Strain urine for stone * Contact isolation for ESBL+ 2) Acute Renal Failure Assessment/Plan * Urology (Dr. Casper) on board * Nephrology (Dr. Patel) on board * NS 80 cc/hr * Flomax 0.4mg PO daily * F/U Renal Failure workup: Collbran/Lambda with Reflex, Serum Immunofixation, Protein Electrophoresis, PTH * C3, C4, Hepatitis Panel, HIV, ZUNILDA screen, RPR were normal/negative 3) Hyperuricemia Assessment/Plan * Allopurinol 100 mg PO 1x/day and Colchicine 0.6 mg PO 1x/day (for 5 doses with last dose on 04/12/18) prevent precipitation of Gout attack 4) Atypical Nevus Assessment/Plan * Located on the upper thoracic paraspinal area: irregular border, rough surface , multicolored (brown and black) * Explained to patient and upon admission that this will have to be biopsied as an outpatient 5) Prophylaxis * Zofran 4 mg IV Q6H PRN N/V * Tylenol 650 mg PO Q6H PRN Fever * Heparin 5,000 Units SC Q8H and Bilateral SCDs * Morphine 0.5 mg IV Q6H PRN Moderate Pain * Morphine 1 mg IV Q6H PRN Severe Pain Disposition: ID recommends for 21 days of IV abx total. Patient will need PICC line. Will place for IR to place for PICC line tomorrow. We will continue to monitor fever. If patient spikes fever, we will order for CT abd/pelvis w/ and w /o IV contrast looking for renal abcess <Mikaela Xavier L - Last Filed: 04/09/18 19:53> Subjective - Date & Time of Evaluation Date of Evaluation: 04/09/18 Time of Evaluation: 13:30 - Subjective Subjective: Mikaela Xavier [employer], Hospitalist Progress Note Patient was examined at bedside. No acute events overnight. Denies fevers. chills, chest pain, shortness of breath, abdominal pain, nausea, vomiting, changes in bowel movements, dysuria. States she is eating and drinking well. Objective - Vital Signs/Intake and Output Vital Signs (last 24 hours): Temp Pulse Resp BP Pulse Ox 98.5 F 76 20 144/91 H 99 04/09/18 04:17 04/09/18 04:17 04/09/18 04:17 04/09/18 04:17 04/09/18 04:17 Intake and Output: 04/09/18 04/09/18 06:59 18:59 Intake Total 1220 Balance 1220 - Medications Medications: Current Medications Acetaminophen (Tylenol 325mg Tab) 650 mg PO Q6 PRN PRN Reason: Pain, Mild (1-3) Last Admin: 04/08/18 20:00 Dose: 650 mg Acetaminophen (Tylenol 325mg Tab) 650 mg PO Q6 PRN PRN Reason: temp. 100.6 and above Last Admin: 04/09/18 04:45 Dose: 650 mg Allopurinol (Zyloprim) 100 mg PO DAILY [facility] Last Admin: 04/08/18 09:21 Dose: 100 mg Colchicine (Colocrys) 0.6 mg PO DAILY [facility] Stop: 04/12/18 10:01 Last Admin: 04/08/18 12:58 Dose: 0.6 mg Heparin Sodium (Porcine) (Heparin) 5,000 units SC Q8 [facility] Last Admin: 04/09/18 06:16 Dose: 5,000 units Sodium Chloride (Sodium Chloride 0.9%) 1,000 mls @ 80 mls/hr IV .[id number] [facility] Last Admin: 04/08/18 20:30 Dose: Not Given Meropenem 1 gm/ Sodium (Chloride) 100 mls @ 100 mls/hr IVPB Q8H [facility] PRN Reason: Protocol Last Admin: 04/08/18 22:37 Dose: 100 mls/hr Morphine Sulfate (Morphine) 0.5 mg IV Q6 PRN PRN Reason: Pain, moderate (4-7) Morphine Sulfate (Morphine) 1 mg IVP Q6H PRN PRN Reason: Pain, severe (8-10) Last Admin: 04/06/18 17:21 Dose: 1 mg Ondansetron HCl (Zofran Inj) 4 mg IVP Q6H PRN PRN Reason: Nausea/Vomiting Saccharomyces Boulardii (Florastor) 250 mg PO BID [facility] Last Admin: 04/08/18 17:00 Dose: 250 mg Tamsulosin HCl (Flomax) 0.4 mg PO DAILY [facility] Last Admin: 04/08/18 09:21 Dose: 0.4 mg - Labs Labs: 04/09/18 06:08 04/09/18 06:08 - Constitutional Appears: Non-toxic, No Acute Distress - Head Exam Head Exam: ATRAUMATIC, NORMAL INSPECTION, NORMOCEPHALIC - Eye Exam Eye Exam: EOMI, Normal appearance - ENT Exam ENT Exam: Mucous Membranes Moist, Normal Exam, Normal External Ear Exam - Neck Exam Neck Exam: Full ROM, Normal Inspection - Respiratory Exam Respiratory Exam: Clear to Ausculation Bilateral, Prolonged Expiratory Phase. absent: Rales, Rhonchi, Wheezes - Cardiovascular Exam Cardiovascular Exam: REGULAR RHYTHM, +S1, +S2 - GI/Abdominal Exam GI & Abdominal Exam: Soft, Normal Bowel Sounds. absent: Firm, Guarding, Tenderness, Rebound - Extremities Exam Extremities Exam: Normal Capillary Refill, Normal Inspection - Back Exam Back Exam: NORMAL INSPECTION. absent: CVA tenderness (L), CVA tenderness (R) - Neurological Exam Neurological Exam: Alert, Awake, CN II-XII Intact, Oriented x3 - Psychiatric Exam Psychiatric exam: Normal Affect, Normal Mood - Skin Skin Exam: Dry, Intact, Normal Color Assessment and Plan - Assessment and Plan (Free Text) Assessment: Patient is a 47 year old female with past medical history of nephrolithiasis and was admitted for sepsis secondary to pyelonephritis due to nephrolithiasis and is being treated with meropenem. Plan: Sepsis secondary to Pyelonephritis secondary to Nephrolithiasis - Improving - CT Abdomen/Pelvis showed moderate to severe hydronephrosis with 3x3x5 right proximal ureter calculus with extensive perniphric stranding - Renal U/S showed bilateral hydropnephrosis with left sided renal cyst with indwelling left double IJ ureteral stent and 1.8 cm midpole calculus - KUB did not show stone on the right but confirmed the double j stent and calculus on the left - Renal Scan showed evidence of obstructive uropathy on the right - Meropenem 1 gm IV Q8H (one dose of Gentamicin given 04/06/18) - Flomax 0.4 mg PO 1x/day - Blood Cultures are negative to date - Urine Culture shows ESBL E. coli that is sensitive to Meropenem: patient is on contact precaution - Repeat Urine Culture ordered for 04/08/18 shows no growth - Strain all urine - Spoke with Urology Dr. Casper 04/06/18: treat the pyelonephritis and patient will need lithotripsy arrangement by [facility] as outpatient at [facility] - ID Dr. Taylor - Fever during night of 04/08/18 with Tmax 100.4. Acute Renal Failure - FNA was < 1% therefore likely prerenal - IVF have normalized renal function and acidosis has resolved: NS @ 140 ml/hr was reduced to 80 ml/hr by Nephrology - Flomax 0.4 mg PO 1x/day - F/U Renal Failure workup: Collbran/Lambda with Reflex, Serum Immunofixation, Protein Electrophoresis, PTH - C3, C4, Hepatitis Panel, HIV, ZUNILDA screen, RPR were normal/negative - Nephrology Dr. Zachery Patel Hyperuricemia - Allopurinol 100 mg PO 1x/day and Colchicine 0.6 mg PO 1x/day (for 5 doses with last dose on 04/12/18) prevent precipitation of Gout attack Atypical Nevus - Located on the upper thoracic paraspinal area: irregular border, rough surface , multicolored (brown and black) - Explained to patient and upon admission that this will have to be biopsied as an outpatient Prophylaxis - Zofran 4 mg IV Q6H PRN N/V - Tylenol 650 mg PO Q6H PRN Fever - Heparin 5,000 Units SC Q8H and Bilateral SCDs - Morphine 0.5 mg IV Q6H PRN Moderate Pain - Morphine 1 mg IV Q6H PRN Severe Pain As long as repeat Urine Culture and Blood Cultures are negative and patient is fever free for at least 48 hours, then patient may be discharged on PO antibiotic of ID Dr. Taylor's choice. Mikaela Xavier PGY-1
[2018-04-09] MEDS: Meropenem 1 GM in Sodium Chloride 0.9% 100 ML IVPB SCH ×3 (08:30→22:58)
--- NOTE | 2018-04-09 08:34 | RAD ---
Date of service: 04/08/2018 HISTORY: fever COMPARISON: 04/06/2018. FINDINGS: LUNGS: The lungs are well inflated. There is moderate pulmonary venous congestion. No focal consolidation. PLEURA: No significant pleural effusion identified, no pneumothorax apparent. CARDIOVASCULAR: There is mild cardiomegaly. OSSEOUS STRUCTURES: No significant abnormalities. VISUALIZED UPPER ABDOMEN: Normal. OTHER FINDINGS: None. IMPRESSION: No active pulmonary disease.
[2018-04-09] MEDS: Saccharomyces Boulardi 250 mg Cap PO SCH ×2 (09:06→18:00)
[2018-04-09] MEDS: Sodium Chloride 0.9% 1,000 ML IV SCH ×2 (09:06→21:09)
--- NOTE | 2018-04-09 12:59 | CP.PCM.PN ---
Subjective - Date & Time of Evaluation Date of Evaluation: 04/09/18 Time of Evaluation: 10:00 - Subjective Subjective: tmax lower dr chaves following iv rx to cont as out pt Objective - Vital Signs/Intake and Output Vital Signs (last 24 hours): Temp Pulse Resp BP Pulse Ox 98.2 F 72 20 110/74 97 04/09/18 07:20 04/09/18 07:20 04/09/18 07:20 04/09/18 07:20 04/09/18 07:20 Intake and Output: 04/09/18 04/09/18 06:59 18:59 Intake Total 1220 Balance 1220 - Medications Medications: Current Medications Acetaminophen (Tylenol 325mg Tab) 650 mg PO Q6 PRN PRN Reason: Pain, Mild (1-3) Last Admin: 04/08/18 20:00 Dose: 650 mg Acetaminophen (Tylenol 325mg Tab) 650 mg PO Q6 PRN PRN Reason: temp. 100.6 and above Last Admin: 04/09/18 04:45 Dose: 650 mg Allopurinol (Zyloprim) 100 mg PO DAILY [facility] Last Admin: 04/09/18 09:06 Dose: 100 mg Colchicine (Colocrys) 0.6 mg PO DAILY [facility] Stop: 04/12/18 10:01 Last Admin: 04/09/18 09:06 Dose: 0.6 mg Heparin Sodium (Porcine) (Heparin) 5,000 units SC Q8 [facility] Last Admin: 04/09/18 06:16 Dose: 5,000 units Sodium Chloride (Sodium Chloride 0.9%) 1,000 mls @ 80 mls/hr IV .[id number] [facility] Last Admin: 04/09/18 09:06 Dose: Not Given Meropenem 1 gm/ Sodium (Chloride) 100 mls @ 100 mls/hr IVPB Q8H ALEXEI PRN Reason: Protocol Last Admin: 04/09/18 08:30 Dose: 100 mls/hr Morphine Sulfate (Morphine) 0.5 mg IV Q6 PRN PRN Reason: Pain, moderate (4-7) Morphine Sulfate (Morphine) 1 mg IVP Q6H PRN PRN Reason: Pain, severe (8-10) Last Admin: 04/06/18 17:21 Dose: 1 mg Ondansetron HCl (Zofran Inj) 4 mg IVP Q6H PRN PRN Reason: Nausea/Vomiting Saccharomyces Marimardii (Florastor) 250 mg PO BID [facility] Last Admin: 04/09/18 09:06 Dose: 250 mg Tamsulosin HCl (Flomax) 0.4 mg PO DAILY [facility] Last Admin: 04/09/18 09:06 Dose: 0.4 mg - Labs Labs: 04/09/18 06:08 04/09/18 06:08 - Constitutional Appears: Non-toxic, Chronically Ill - Head Exam Head Exam: NORMOCEPHALIC - Eye Exam Eye Exam: PERRL - ENT Exam ENT Exam: Mucous Membranes Dry - Neck Exam Neck Exam: absent: Lymphadenopathy - Respiratory Exam Respiratory Exam: Decreased Breath Sounds - Cardiovascular Exam Cardiovascular Exam: REGULAR RHYTHM - GI/Abdominal Exam GI & Abdominal Exam: Distended, Soft. absent: Tenderness - Rectal Exam Rectal Exam: Deferred - Exam Exam: NORMAL INSPECTION - Extremities Exam Extremities Exam: absent: Pedal Edema - Back Exam Back Exam: absent: CVA tenderness (L), CVA tenderness (R) - Neurological Exam Neurological Exam: Alert, Awake, CN II-XII Intact Assessment and Plan (1) Hydroureteronephrosis Status: Acute (2) Sepsis Status: Acute (3) Abdominal pain Status: Acute (4) Kidney stone Status: Acute (5) Renal colic on right side Status: Acute - Assessment and Plan (Free Text) Assessment: cont iv rx for total 21 days
--- NOTE | 2018-04-09 21:42 | CP.PCM.PN ---
Subjective - Date & Time of Evaluation Date of Evaluation: 04/09/18 Time of Evaluation: 21:00 - Subjective Subjective: Reports feeling well; no more fevers/chills today; tolerating diet; no nausea/ vomiting or flank pain; Objective - Vital Signs/Intake and Output Vital Signs (last 24 hours): Temp Pulse Resp BP Pulse Ox 99.2 F 74 20 130/90 96 04/09/18 16:08 04/09/18 16:08 04/09/18 16:08 04/09/18 16:08 04/09/18 16:08 - Medications Medications: Current Medications Acetaminophen (Tylenol 325mg Tab) 650 mg PO Q6 PRN PRN Reason: Pain, Mild (1-3) Last Admin: 04/09/18 17:53 Dose: 650 mg Acetaminophen (Tylenol 325mg Tab) 650 mg PO Q6 PRN PRN Reason: temp. 100.6 and above Last Admin: 04/09/18 04:45 Dose: 650 mg Allopurinol (Zyloprim) 100 mg PO DAILY [facility] Last Admin: 04/09/18 09:06 Dose: 100 mg Colchicine (Colocrys) 0.6 mg PO DAILY [facility] Stop: 04/12/18 10:01 Last Admin: 04/09/18 09:06 Dose: 0.6 mg Heparin Sodium (Porcine) (Heparin) 5,000 units SC Q8 [facility] Last Admin: 04/09/18 21:09 Dose: 5,000 units Sodium Chloride (Sodium Chloride 0.9%) 1,000 mls @ 80 mls/hr IV .[id number] [facility] Last Admin: 04/09/18 21:09 Dose: 80 mls/hr Meropenem 1 gm/ Sodium (Chloride) 100 mls @ 100 mls/hr IVPB Q8H ALEXEI PRN Reason: Protocol Last Admin: 04/09/18 14:35 Dose: 100 mls/hr Morphine Sulfate (Morphine) 0.5 mg IV Q6 PRN PRN Reason: Pain, moderate (4-7) Morphine Sulfate (Morphine) 1 mg IVP Q6H PRN PRN Reason: Pain, severe (8-10) Last Admin: 04/06/18 17:21 Dose: 1 mg Ondansetron HCl (Zofran Inj) 4 mg IVP Q6H PRN PRN Reason: Nausea/Vomiting Saccharomyces Boulardii (Florastor) 250 mg PO BID [facility] Last Admin: 04/09/18 18:00 Dose: 250 mg Tamsulosin HCl (Flomax) 0.4 mg PO DAILY [facility] Last Admin: 04/09/18 09:06 Dose: 0.4 mg - Labs Labs: 04/09/18 06:08 04/09/18 06:08 - Constitutional Appears: Non-toxic, No Acute Distress - Eye Exam Eye Exam: Normal appearance - ENT Exam ENT Exam: Mucous Membranes Moist - Respiratory Exam Respiratory Exam: Clear to Ausculation Bilateral. absent: Respiratory Distress - Cardiovascular Exam Cardiovascular Exam: RRR, +S1, +S2 - GI/Abdominal Exam GI & Abdominal Exam: Soft. absent: Distended, Tenderness - Extremities Exam Additional comments: no leg edema; - Neurological Exam Neurological Exam: Alert, Awake - Psychiatric Exam Psychiatric exam: Normal Affect, Normal Mood - Skin Skin Exam: Warm. absent: Cyanosis Assessment and Plan (1) Sepsis Assessment & Plan: Afbrile today after abx dose increased; needs prolonged IV abx course per ID; Status: Acute (2) Kidney stone Assessment & Plan: With large L kidney stone needing ESWL; R sided ureteral stone likely passed; continue IVF for now; will obtain 24 hr stone risk assessment once off IVF; Status: Acute (3) Hydroureteronephrosis Assessment & Plan: Will need repeat renal US in a few days looking for resolution of R sided hydro ; L hydro will likely persist at least until large stone is present; Status: Acute (4) Hyperuricemia Assessment & Plan: On allopurinol, continue; repeat uric acid level in a few days; Status: Chronic (5) Acute kidney injury Status: Resolved
[2018-04-10 00:04] LABS: ALBUMIN (PEP) 2.3 g/dL (3.8-4.8); ALPHA-1-GLOBULIN (PEP) 0.6 g/dL (0.2-0.3)
[2018-04-10 06:22] LABS: BASO % 0.7 % (0.0-2.0); EOS % 0.7 % (0.0-4.0); HEMOGLOBIN 11.5 g/dL (11.0-16.0); LYMPH # 2.3 K/uL (1.0-4.3); LYMPH % 34.7 % (20.0-40.0); MEAN CELL VOLUME 83.5 fL (81.0-99.0); MEAN CORPUSCULAR HEMOGLOBIN 28.6 pg (27.0-31.0); MEAN CORPUSCULAR HGB CONC 34.2 g/dL (33.0-37.0); MEAN PLATELET VOLUME 8.9 fL (7.2-11.7); MONO # 0.6 K/uL (0.0-0.8); MONO % 9.2 % (0.0-10.0); NEUT # 3.6 K/uL (1.8-7.0); NEUT % 54.7 % (50.0-75.0); RBC 4.02 Mil/uL (3.80-5.20); RED CELL DISTRIBUTION WIDTH 14.6 % (11.5-14.5); WHITE BLOOD COUNT 6.6 K/uL (4.8-10.8)
[2018-04-10] MEDS: Meropenem 1 GM in Sodium Chloride 0.9% 100 ML IVPB SCH ×3 (06:30→17:10)
--- NOTE | 2018-04-10 06:53 | CP.PCM.PN ---
<Mili Gordon - Last Filed: 04/10/18 12:36> Subjective - Date & Time of Evaluation Date of Evaluation: 04/10/18 Time of Evaluation: 08:00 - Subjective Subjective: Nephrology Progress Note for Ananth Salcido PGY3 Patient seen and examined at bedside. There were no acute overnight events as per nursing staff. Patient was sitting up in bed comfortably. She denies having any abdominal pain, back pain, chest pain, dysuria, urinary frequency, nausea/ vomiting/diarrhea/constipation, fever/chills, shortness of breath, numbness or tingling. Objective - Vital Signs/Intake and Output Vital Signs (last 24 hours): Temp Pulse Resp BP Pulse Ox 98.2 F 67 20 115/62 97 04/09/18 23:00 04/09/18 23:00 04/09/18 23:00 04/09/18 23:00 04/09/18 23:00 Intake and Output: 04/09/18 04/10/18 18:59 06:59 Intake Total 640 Balance 640 - Medications Medications: Current Medications Acetaminophen (Tylenol 325mg Tab) 650 mg PO Q6 PRN PRN Reason: Pain, Mild (1-3) Last Admin: 04/09/18 17:53 Dose: 650 mg Acetaminophen (Tylenol 325mg Tab) 650 mg PO Q6 PRN PRN Reason: temp. 100.6 and above Last Admin: 04/09/18 04:45 Dose: 650 mg Allopurinol (Zyloprim) 100 mg PO DAILY [facility] Last Admin: 04/09/18 09:06 Dose: 100 mg Colchicine (Colocrys) 0.6 mg PO DAILY [facility] Stop: 04/12/18 10:01 Last Admin: 04/09/18 09:06 Dose: 0.6 mg Heparin Sodium (Porcine) (Heparin) 5,000 units SC Q8 [facility] Last Admin: 04/10/18 06:01 Dose: 5,000 units Sodium Chloride (Sodium Chloride 0.9%) 1,000 mls @ 80 mls/hr IV .[id number] [facility] Last Admin: 04/09/18 21:09 Dose: 80 mls/hr Meropenem 1 gm/ Sodium (Chloride) 100 mls @ 100 mls/hr IVPB Q8H [facility] PRN Reason: Protocol Last Admin: 04/10/18 06:30 Dose: 100 mls/hr Morphine Sulfate (Morphine) 0.5 mg IV Q6 PRN PRN Reason: Pain, moderate (4-7) Morphine Sulfate (Morphine) 1 mg IVP Q6H PRN PRN Reason: Pain, severe (8-10) Last Admin: 04/06/18 17:21 Dose: 1 mg Ondansetron HCl (Zofran Inj) 4 mg IVP Q6H PRN PRN Reason: Nausea/Vomiting Saccharomyces Boulardii (Florastor) 250 mg PO BID [facility] Last Admin: 04/09/18 18:00 Dose: 250 mg Tamsulosin HCl (Flomax) 0.4 mg PO DAILY [facility] Last Admin: 04/09/18 09:06 Dose: 0.4 mg - Labs Labs: 04/10/18 06:13 04/09/18 06:08 - Constitutional Appears: No Acute Distress - Head Exam Head Exam: ATRAUMATIC, NORMAL INSPECTION, NORMOCEPHALIC - Eye Exam Eye Exam: Normal appearance, PERRL Pupil Exam: NORMAL ACCOMODATION, PERRL - ENT Exam ENT Exam: Mucous Membranes Moist - Respiratory Exam Respiratory Exam: Clear to Ausculation Bilateral, NORMAL BREATHING PATTERN. absent: Rales, Rhonchi, Wheezes - Cardiovascular Exam Cardiovascular Exam: REGULAR RHYTHM, +S1, +S2. absent: Gallop, Rubs, Murmur - GI/Abdominal Exam GI & Abdominal Exam: Soft, Normal Bowel Sounds. absent: Rigid, Tenderness, Mass , Rebound - Extremities Exam Extremities Exam: Normal Inspection. absent: Calf Tenderness, Pedal Edema - Back Exam Back Exam: absent: CVA tenderness (L), CVA tenderness (R) - Neurological Exam Neurological Exam: Alert, Awake, CN II-XII Intact, Oriented x3 - Psychiatric Exam Psychiatric exam: Normal Affect, Normal Mood - Skin Skin Exam: Dry, Warm Assessment and Plan - Assessment and Plan (Free Text) Assessment: This is a 47yo female with past medical history of HTN and nephrolithiasis who was admitted for 1. Sepsis - secondary ESBL + UTI - On IV antibiotics (Merrem)- Has PICC line in place 2. Nephrolithiasis - Pt had bilateral stones - L needed ESWL. R stone passed - will dc fluids- pt tolerating diet - will check 24hr urine in 2 days for stone collection 3. Hydroureteronephrosis - May needed repeat renal US before discharge- R sided hydro may resolve- L hydro may be persistent 4. Hyperuricemia - On Colchicine for 3 more days - Allopurinol - Repeat Uric acid after complete colchicine 5. CONSTANCE- resolved Case seen, discussed and reviewed with Dr. Patel. Ananth Gordon PGY3 <Daniel Patel - Last Filed: 04/11/18 06:19> Objective - Vital Signs/Intake and Output Vital Signs (last 24 hours): Temp Pulse Resp BP Pulse Ox 98.1 F 77 20 120/81 95 04/11/18 00:00 04/11/18 00:00 04/11/18 00:00 04/11/18 00:00 04/11/18 00:00 Intake and Output: 04/10/18 04/11/18 18:59 06:59 Intake Total 1270 Balance 1270 - Medications Medications: Current Medications Acetaminophen (Tylenol 325mg Tab) 650 mg PO Q6 PRN PRN Reason: Pain, Mild (1-3) Last Admin: 04/10/18 21:45 Dose: 650 mg Acetaminophen (Tylenol 325mg Tab) 650 mg PO Q6 PRN PRN Reason: temp. 100.6 and above Last Admin: 04/09/18 04:45 Dose: 650 mg Allopurinol (Zyloprim) 100 mg PO DAILY [facility] Last Admin: 04/10/18 11:44 Dose: 100 mg Colchicine (Colocrys) 0.6 mg PO DAILY [facility] Stop: 04/12/18 10:01 Last Admin: 04/10/18 11:43 Dose: 0.6 mg Heparin Sodium (Porcine) (Heparin) 5,000 units SC Q8 [facility] Last Admin: 04/11/18 05:19 Dose: 5,000 units Meropenem 1 gm/ Sodium (Chloride) 100 mls @ 100 mls/hr IVPB Q8H [facility] PRN Reason: Protocol Last Admin: 04/10/18 17:10 Dose: Not Given Morphine Sulfate (Morphine) 0.5 mg IV Q6 PRN PRN Reason: Pain, moderate (4-7) Morphine Sulfate (Morphine) 1 mg IVP Q6H PRN PRN Reason: Pain, severe (8-10) Last Admin: 04/06/18 17:21 Dose: 1 mg Ondansetron HCl (Zofran Inj) 4 mg IVP Q6H PRN PRN Reason: Nausea/Vomiting Saccharomyces Boulardii (Florastor) 250 mg PO BID [facility] Last Admin: 04/10/18 17:11 Dose: 250 mg Tamsulosin HCl (Flomax) 0.4 mg PO DAILY [facility] Last Admin: 04/10/18 11:43 Dose: 0.4 mg - Labs Labs: 04/10/18 06:13 04/10/18 06:13 Assessment and Plan (1) Sepsis Status: Acute (2) Kidney stone Status: Acute (3) Hydroureteronephrosis Status: Acute (4) Hyperuricemia Status: Chronic (5) Acute kidney injury Status: Resolved Attending/Attestation - Attestation I have personally seen and examined this patient.: Yes I have fully participated in the care of the patient.: Yes I have reviewed all pertinent clinical information, including history, physical exam and plan: Yes Notes (Text): Patient seen and examined; I agree with the resident's note as above with the following additions/edits: Patient with long history of nephrolithiasis, L ureteral stent with large L renal calculus and associated hydronephrosis, admitted with R ureteral stone with ensuing sepsis, R hydronephrosis and CONSTANCE; symptoms have resolved since past few days with resolution of fevers since increasing abx dosing and resolution of CONSTANCE with adequate intravascular volume repletion; Repeat renal US reviewed; R hydronephrosis has not resolved; resolution of flank pain goes against persistent R ureteral obstruction from stone (thought to have passed spontaneously although not seen by patient); should continue flomax 0.4 mg daily and continue to strain her urine to collect any possible stone fragments; will need repeat imaging as outpatient, preferably non- contrast CT abd/pelvis as uric acid stone can be missed by other imaging; Patient to be on IV abx for total of 3 weeks per ID for complicated E coli ESBL UTI with possibility of stone or even stent infection; needs close outpatient urology f/u for lithotripsy and possible L ureteral stent exchange (placed in September 2017); has high risk for recurrent pyelonephritis which can cause loss of renal function over time; Should continue allopurionol for urate reduction; likely has metabolic syndrome and will benefit from weight reduction and better glycemic control (almost borderline diabetic); Should f/u in nephrology clinic.
--- NOTE | 2018-04-10 06:59 | CP.PCM.PN ---
<Mikaela Xavier - Last Filed: 04/10/18 17:37> Subjective - Date & Time of Evaluation Date of Evaluation: 04/10/18 Time of Evaluation: 08:00 - Subjective Subjective: Mikaela Xavier, [facility], Hospitalist Progress Note Patient examined at bedside. Offers no new complaints. Denies fevers, chills, chest pain, shortness of breath, abdominal pain, nausea, vomiting, changes in bowel movements, dysuria. Objective - Vital Signs/Intake and Output Vital Signs (last 24 hours): Temp Pulse Resp BP Pulse Ox 98.2 F 67 20 115/62 97 04/09/18 23:00 04/09/18 23:00 04/09/18 23:00 04/09/18 23:00 04/09/18 23:00 Intake and Output: 04/09/18 04/10/18 18:59 06:59 Intake Total 640 Balance 640 - Medications Medications: Current Medications Acetaminophen (Tylenol 325mg Tab) 650 mg PO Q6 PRN PRN Reason: Pain, Mild (1-3) Last Admin: 04/09/18 17:53 Dose: 650 mg Acetaminophen (Tylenol 325mg Tab) 650 mg PO Q6 PRN PRN Reason: temp. 100.6 and above Last Admin: 04/09/18 04:45 Dose: 650 mg Allopurinol (Zyloprim) 100 mg PO DAILY [facility] Last Admin: 04/09/18 09:06 Dose: 100 mg Colchicine (Colocrys) 0.6 mg PO DAILY [facility] Stop: 04/12/18 10:01 Last Admin: 04/09/18 09:06 Dose: 0.6 mg Heparin Sodium (Porcine) (Heparin) 5,000 units SC Q8 [facility] Last Admin: 04/10/18 06:01 Dose: 5,000 units Sodium Chloride (Sodium Chloride 0.9%) 1,000 mls @ 80 mls/hr IV .[id number] [facility] Last Admin: 04/09/18 21:09 Dose: 80 mls/hr Meropenem 1 gm/ Sodium (Chloride) 100 mls @ 100 mls/hr IVPB Q8H [facility] PRN Reason: Protocol Last Admin: 04/10/18 06:30 Dose: 100 mls/hr Morphine Sulfate (Morphine) 0.5 mg IV Q6 PRN PRN Reason: Pain, moderate (4-7) Morphine Sulfate (Morphine) 1 mg IVP Q6H PRN PRN Reason: Pain, severe (8-10) Last Admin: 04/06/18 17:21 Dose: 1 mg Ondansetron HCl (Zofran Inj) 4 mg IVP Q6H PRN PRN Reason: Nausea/Vomiting Saccharomyces Boulardii (Florastor) 250 mg PO BID [facility] Last Admin: 04/09/18 18:00 Dose: 250 mg Tamsulosin HCl (Flomax) 0.4 mg PO DAILY [facility] Last Admin: 04/09/18 09:06 Dose: 0.4 mg - Labs Labs: 04/10/18 06:13 04/09/18 06:08 - Additional Findings Additional findings: - Constitutional Appears: Non-toxic, No Acute Distress - Head Exam Head Exam: ATRAUMATIC, NORMAL INSPECTION, NORMOCEPHALIC - Eye Exam Eye Exam: EOMI, Normal appearance - ENT Exam ENT Exam: Mucous Membranes Moist, Normal Exam, Normal External Ear Exam - Neck Exam Neck Exam: Full ROM, Normal Inspection - Respiratory Exam Respiratory Exam: Clear to Ausculation Bilateral, Prolonged Expiratory Phase. absent: Rales, Rhonchi, Wheezes - Cardiovascular Exam Cardiovascular Exam: REGULAR RHYTHM, +S1, +S2 - GI/Abdominal Exam GI & Abdominal Exam: Soft, Normal Bowel Sounds. absent: Firm, Guarding, Tenderness, Rebound - Extremities Exam Extremities Exam: Normal Capillary Refill, Normal Inspection - Back Exam Back Exam: NORMAL INSPECTION. absent: CVA tenderness (L), CVA tenderness (R) - Neurological Exam Neurological Exam: Alert, Awake, CN II-XII Intact, Oriented x3 - Psychiatric Exam Psychiatric exam: Normal Affect, Normal Mood - Skin Skin Exam: Dry, Intact, Normal Color Assessment and Plan - Assessment and Plan (Free Text) Assessment: Patient is a 47 year old female with past medical history of nephrolithiasis and was admitted for sepsis secondary to pyelonephritis due to nephrolithiasis and was being treated with meropenem. Plan: Sepsis secondary to Pyelonephritis secondary to Nephrolithiasis - Improving - CT Abdomen/Pelvis showed moderate to severe hydronephrosis with 3x3x5 right proximal ureter calculus with extensive perniphric stranding - Renal U/S showed bilateral hydropnephrosis with left sided renal cyst with indwelling left double IJ ureteral stent and 1.8 cm midpole calculus - KUB did not show stone on the right but confirmed the double j stent and calculus on the left - Renal Scan showed evidence of obstructive uropathy on the right - Meropenem 1 gm IV Q8H (one dose of Gentamicin given 04/06/18) - Flomax 0.4 mg PO 1x/day - Blood Cultures are negative to date - Urine Culture shows ESBL E. coli that is sensitive to Meropenem: patient is on contact precaution - Repeat Urine Culture ordered for 04/08/18 shows no growth - Strain all urine - Spoke with Urology Dr. Casper 04/06/18: treat the pyelonephritis and patient will need lithotripsy arrangement by [facility] as outpatient at [facility] - ID Dr. Taylor- recommend discharging patient with Invanz. Will give one dose tonight and monitor for reaction. - Tmax overnight 99.2 Acute Renal Failure - FNA was < 1% therefore likely prerenal - IVF have normalized renal function and acidosis has resolved: NS @ 140 ml/hr was reduced to 80 ml/hr by Nephrology - Flomax 0.4 mg PO 1x/day - F/U Renal Failure workup: Vansant/Lambda with Reflex, Serum Immunofixation, Protein Electrophoresis, PTH - C3, C4, Hepatitis Panel, HIV, ZUNILDA screen, RPR were normal/negative - Nephrology Dr. Zachery Patel - Followup repeat renal ultrasound Hyperuricemia - Allopurinol 100 mg PO 1x/day and Colchicine 0.6 mg PO 1x/day (for 5 doses with last dose on 04/12/18) prevent precipitation of Gout attack Atypical Nevus - Located on the upper thoracic paraspinal area: irregular border, rough surface , multicolored (brown and black) - Explained to patient and upon admission that this will have to be biopsied as an outpatient Prophylaxis - Zofran 4 mg IV Q6H PRN N/V - Tylenol 650 mg PO Q6H PRN Fever - Heparin 5,000 Units SC Q8H and Bilateral SCDs - Morphine 0.5 mg IV Q6H PRN Moderate Pain - Morphine 1 mg IV Q6H PRN Severe Pain As long as repeat Urine Culture and Blood Cultures are negative and patient is fever free for at least 48 hours, then patient may be discharged on antibiotic of ID Dr. Taylor's choice. Mikaela Xavier PGY-1 <Sharri Schwartz V - Last Filed: 04/10/18 23:51> Objective - Vital Signs/Intake and Output Vital Signs (last 24 hours): Temp Pulse Resp BP Pulse Ox 98.1 F 93 H 18 131/88 97 04/10/18 15:47 04/10/18 15:47 04/10/18 15:47 04/10/18 15:47 04/10/18 15:47 Intake and Output: 04/10/18 04/11/18 18:59 06:59 Intake Total 1270 Balance 1270 - Medications Medications: Current Medications Acetaminophen (Tylenol 325mg Tab) 650 mg PO Q6 PRN PRN Reason: Pain, Mild (1-3) Last Admin: 04/10/18 21:45 Dose: 650 mg Acetaminophen (Tylenol 325mg Tab) 650 mg PO Q6 PRN PRN Reason: temp. 100.6 and above Last Admin: 04/09/18 04:45 Dose: 650 mg Allopurinol (Zyloprim) 100 mg PO DAILY [facility] Last Admin: 04/10/18 11:44 Dose: 100 mg Colchicine (Colocrys) 0.6 mg PO DAILY [facility] Stop: 04/12/18 10:01 Last Admin: 04/10/18 11:43 Dose: 0.6 mg Heparin Sodium (Porcine) (Heparin) 5,000 units SC Q8 [facility] Last Admin: 04/10/18 21:43 Dose: 5,000 units Meropenem 1 gm/ Sodium (Chloride) 100 mls @ 100 mls/hr IVPB Q8H [facility] PRN Reason: Protocol Last Admin: 04/10/18 17:10 Dose: Not Given Morphine Sulfate (Morphine) 0.5 mg IV Q6 PRN PRN Reason: Pain, moderate (4-7) Morphine Sulfate (Morphine) 1 mg IVP Q6H PRN PRN Reason: Pain, severe (8-10) Last Admin: 04/06/18 17:21 Dose: 1 mg Ondansetron HCl (Zofran Inj) 4 mg IVP Q6H PRN PRN Reason: Nausea/Vomiting Saccharomyces Boulardii (Florastor) 250 mg PO BID [facility] Last Admin: 04/10/18 17:11 Dose: 250 mg Tamsulosin HCl (Flomax) 0.4 mg PO DAILY [facility] Last Admin: 04/10/18 11:43 Dose: 0.4 mg - Labs Labs: 04/10/18 06:13 04/10/18 06:13 Attending/Attestation - Attestation I have personally seen and examined this patient.: Yes I have fully participated in the care of the patient.: Yes I have reviewed all pertinent clinical information, including history, physical exam and plan: Yes Notes (Text): Patient seen, examined and case discussed with day-time resident. Patient this morning received PICC line over the right upper extremity to setup for IV abx. Resident has spoken with ID, Dr Taylor recommended for Invanz for 18 more days to complete 21 day therapy. Patient to receive 1st dose of Invanz while in the hospital to be observed overnight for any adverse side effect; if none, patient to be discharge tomorrow for preparation for IV transfusion center. plate worker helper Amelia aware and will make arrangements with the IV transfusion center. Resident has spoken with zone maintenance technician advised to repeat Renal US to see if right hydronephrosis is improving. Upon discharge, * patient will need weekly labs to monitor her while on Invanz to complete on April 28 for 21 day treatment. Patient to have weekly labs to be drawn while on antibiotic by infectious disease. Patient upon conclusion of IV abx should have PICC line removed. * Patient to follow-up and establish care at the [facility] in [place] at [address] [facility], Phone number to contact for an appointment is [phone]. * Patient understands that the surgery she requires is expensive. Patient recommend for outpatient at the [facility] for obstructing stone 3X3X5 mm proximal ureteral stone w mild to moderate right hydronephorsis. Patient will need follow-up with urology. She understands that stone can act as a site of infection even after completing IV abx. * Note: patient will need follow-up with clinic for noted atypical nevus for skin biopsy for further evaluation. * Patient will need follow-up uric acid level upon completion of colchine. * We will re-emphasize discharge instructions with the patient tomorrow in Georgian. * Scripts: flomax 0.4mg PO daily (30tabs/0), Colchinw 0.6mg PO once a day (2 tabs/0), and antibiotic to be setup prior to discharge. * Assessment/Plan 1) Sepsis Pyelonephritis Nephrolithiasis Assessment/Plan * Infectious disease (Dr. Taylor) on board * Recommending for IV Abx for 21 days * Ivanvaz as antibiotic of choice-->will receive 1st dose here prior to discharge and then continue at outpatient transfusion center until April 28. * PICC placed but should be removed upon completion of IV abx. * Weekly labs to be drawn at the transfusion center. * Urology (Dr. Casper) on board * Nephrology (Dr. Patel) on board * CT Abdomen/Pelvis showed moderate to severe hydronephrosis with 3x3x5 right proximal ureter calculus with extensive perniphric stranding * Renal U/S showed bilateral hydropnephrosis with left sided renal cyst with indwelling left double IJ ureteral stent and 1.8 cm midpole calculus * KUB did not show stone on the right but confirmed the double j stent and calculus on the left * Renal Scan showed evidence of obstructive uropathy on the right * Meropenem 1 gm IV Q8H (active since 04/08/18) * Flomax 0.4 mg PO 1x/day * Blood Cultures (04/05/18): no growth after 5 days X2 * Urine Culture (04/05/18): E. Coli * Urine Culture (04/08/18): no growth X 48 hours X2 * Strain urine for stone * Contact isolation for ESBL+ 2) Acute Renal Failure Assessment/Plan * Urology (Dr. Casper) on board * Nephrology (Dr. Patel) on board * d/c NS 80 cc/hr * Flomax 0.4mg PO daily * F/U Renal Failure workup: Vansant/Lambda with Reflex, Serum Immunofixation, Protein Electrophoresis, PTH * C3, C4, Hepatitis Panel, HIV, ZUNILDA screen, RPR were normal/negative 3) Hyperuricemia Assessment/Plan * Allopurinol 100 mg PO 1x/day and Colchicine 0.6 mg PO 1x/day (for 5 doses with last dose on 04/12/18) prevent precipitation of Gout attack 4) Atypical Nevus Assessment/Plan * Located on the upper thoracic paraspinal area: irregular border, rough surface , multicolored (brown and black) * Explained to patient and upon admission that this will have to be biopsied as an outpatient 5) Prophylaxis * Zofran 4 mg IV Q6H PRN N/V * Tylenol 650 mg PO Q6H PRN Fever * Heparin 5,000 Units SC Q8H and Bilateral SCDs * Morphine 0.5 mg IV Q6H PRN Moderate Pain * Morphine 1 mg IV Q6H PRN Severe Pain
[2018-04-10 07:01] LABS: ALBUMIN 3.5 g/dL (3.5-5.0); ALT/SGPT 44 U/L (9-52); AST/SGOT 41 U/L (14-36); BLOOD UREA NITROGEN 11 mg/dL (7-17); CALCIUM 9.2 mg/dl (8.6-10.4); GFR AFRICAN-AMERICAN > 60; GFR NON-AFRICAN AMERICAN > 60
[2018-04-10] MEDS: Sodium Chloride 0.9% 1,000 ML IV SCH (11:44)
[2018-04-10] MEDS: Saccharomyces Boulardi 250 mg Cap PO SCH ×2 (11:44→17:11)
--- NOTE | 2018-04-10 11:56 | RAD ---
Date of service: 04/10/2018 HISTORY: verify right PICC COMPARISON: 04/08/2018 FINDINGS: LUNGS: Ill-defined linear opacity at the right lung base possibly platelike atelectasis. Cannot rule out early infiltrate. PLEURA: No significant pleural effusion identified, no pneumothorax apparent. CARDIOVASCULAR: New right PICC catheter terminating at the level of the cavoatrial junction. OSSEOUS STRUCTURES: No significant abnormalities. VISUALIZED UPPER ABDOMEN: Normal. OTHER FINDINGS: None. IMPRESSION: New right PICC catheter terminating at the level of the cavoatrial junction. Possible platelike atelectasis at right base. Follow-up advised.
--- NOTE | 2018-04-10 13:36 | CP.PCM.PN ---
Subjective - Date & Time of Evaluation Date of Evaluation: 04/10/18 Time of Evaluation: 08:00 - Subjective Subjective: discussed on rounds iv rx in progress Objective - Vital Signs/Intake and Output Vital Signs (last 24 hours): Temp Pulse Resp BP Pulse Ox 98.1 F 71 20 120/64 97 04/10/18 07:00 04/10/18 07:00 04/10/18 07:00 04/10/18 07:00 04/10/18 07:00 Intake and Output: 04/10/18 04/10/18 06:59 18:59 Intake Total 640 Balance 640 - Medications Medications: Current Medications Acetaminophen (Tylenol 325mg Tab) 650 mg PO Q6 PRN PRN Reason: Pain, Mild (1-3) Last Admin: 04/09/18 17:53 Dose: 650 mg Acetaminophen (Tylenol 325mg Tab) 650 mg PO Q6 PRN PRN Reason: temp. 100.6 and above Last Admin: 04/09/18 04:45 Dose: 650 mg Allopurinol (Zyloprim) 100 mg PO DAILY [facility] Last Admin: 04/10/18 11:44 Dose: 100 mg Colchicine (Colocrys) 0.6 mg PO DAILY [facility] Stop: 04/12/18 10:01 Last Admin: 04/10/18 11:43 Dose: 0.6 mg Heparin Sodium (Porcine) (Heparin) 5,000 units SC Q8 [facility] Last Admin: 04/10/18 06:01 Dose: 5,000 units Meropenem 1 gm/ Sodium (Chloride) 100 mls @ 100 mls/hr IVPB Q8H [facility] PRN Reason: Protocol Last Admin: 04/10/18 06:30 Dose: 100 mls/hr Morphine Sulfate (Morphine) 0.5 mg IV Q6 PRN PRN Reason: Pain, moderate (4-7) Morphine Sulfate (Morphine) 1 mg IVP Q6H PRN PRN Reason: Pain, severe (8-10) Last Admin: 04/06/18 17:21 Dose: 1 mg Ondansetron HCl (Zofran Inj) 4 mg IVP Q6H PRN PRN Reason: Nausea/Vomiting Saccharomyces Boulardii (Florastor) 250 mg PO BID [facility] Last Admin: 04/10/18 11:44 Dose: 250 mg Tamsulosin HCl (Flomax) 0.4 mg PO DAILY [facility] Last Admin: 04/10/18 11:43 Dose: 0.4 mg - Labs Labs: 04/10/18 06:13 04/10/18 06:13 - Constitutional Appears: Non-toxic, Chronically Ill - Head Exam Head Exam: NORMOCEPHALIC - Eye Exam Eye Exam: PERRL - ENT Exam ENT Exam: Mucous Membranes Dry - Neck Exam Neck Exam: absent: Lymphadenopathy - Respiratory Exam Respiratory Exam: Decreased Breath Sounds - Cardiovascular Exam Cardiovascular Exam: REGULAR RHYTHM - GI/Abdominal Exam GI & Abdominal Exam: Distended, Soft Assessment and Plan (1) Hydroureteronephrosis Status: Acute (2) Sepsis Status: Acute (3) Abdominal pain Status: Acute (4) Kidney stone Status: Acute (5) Renal colic on right side Status: Acute
--- NOTE | 2018-04-10 13:46 | CP.PCM.PCO ---
Physician Communication Note - Physician Communication Note Physician Communication Note: Per Dr. De Luna (ID) patient approved for 18 more days of IV invanz therapy
--- NOTE | 2018-04-10 14:52 | CARD ---
APPROVED REPORT Date of service: 04/05/2018 EKG Measurement Heart [id number] <Conclusion> Sinus tachycardia Inferior infarct, age undetermined Abnormal ECG
--- NOTE | 2018-04-10 18:22 | US ---
Date of service: 04/10/2018 PROCEDURE: Ultrasound of the Kidneys HISTORY: history pyelonephritis COMPARISON: Comparison is made to the previous study dated 04/06/[address] of the abdomen and pelvis dated 04/05/2018. TECHNIQUE: Sonogram of the kidneys. FINDINGS: RIGHT KIDNEY: Measures: 15.2 x 5.9 x 5.6 cm. Normal in size, contour and echogenicity. Mild to moderate hydronephrosis is again noted. LEFT KIDNEY: Measures: 16.9 x 6.8 x 6.5 cm. Heterogeneous echotexture and lobular contour of the left kidney is noted. There is nonobstructing calculus at the left kidney measures 1.9 centimeter in the transverse diameter. There are parapelvic cyst seen. Midpole cyst seen measures 3.8 x 3.9 centimeter. Moderate left hydronephrosis is also noted. OTHER FINDINGS: None. IMPRESSION: Moderate bilateral hydronephrosis.
[2018-04-11 00:15] VITALS: RESP 20; O2SAT 95
--- NOTE | 2018-04-11 06:37 | CP.PCM.PN ---
Subjective - Date & Time of Evaluation Date of Evaluation: 04/11/18 Time of Evaluation: 07:30 Objective - Vital Signs/Intake and Output Vital Signs (last 24 hours): Temp Pulse Resp BP Pulse Ox 98.1 F 77 20 120/81 95 04/11/18 00:00 04/11/18 00:00 04/11/18 00:00 04/11/18 00:00 04/11/18 00:00 Intake and Output: 04/10/18 04/11/18 18:59 06:59 Intake Total 1270 Balance 1270 - Medications Medications: Current Medications Acetaminophen (Tylenol 325mg Tab) 650 mg PO Q6 PRN PRN Reason: Pain, Mild (1-3) Last Admin: 04/10/18 21:45 Dose: 650 mg Acetaminophen (Tylenol 325mg Tab) 650 mg PO Q6 PRN PRN Reason: temp. 100.6 and above Last Admin: 04/09/18 04:45 Dose: 650 mg Allopurinol (Zyloprim) [address] [facility] Last Admin: 04/10/18 11:44 Dose: 100 mg Colchicine (Colocrys) 0.[address] [facility] Stop: 04/12/18 10:01 Last Admin: 04/10/18 11:43 Dose: 0.6 mg Heparin Sodium (Porcine) (Heparin) 5,[address] [facility] Last Admin: 04/11/18 05:19 Dose: 5,000 units Meropenem 1 gm/ Sodium (Chloride) 100 mls @ 100 mls/hr IVPB Q8H [facility] PRN Reason: Protocol Last Admin: 04/10/18 17:10 Dose: Not Given Morphine Sulfate (Morphine) 0.5 mg IV Q6 PRN PRN Reason: Pain, moderate (4-7) Morphine Sulfate (Morphine) 1 mg IVP Q6H PRN PRN Reason: Pain, severe (8-10) Last Admin: 04/06/18 17:21 Dose: 1 mg Ondansetron HCl (Zofran Inj) 4 mg IVP Q6H PRN PRN Reason: Nausea/Vomiting Saccharomyces Boulardii (Florastor) [address] [facility] Last Admin: 04/10/18 17:11 Dose: 250 mg Tamsulosin HCl (Flomax) 0.[address] [facility] Last Admin: 04/10/18 11:43 Dose: 0.4 mg - Labs Labs: 04/10/18 06:13 04/10/18 06:13
[2018-04-11 07:54] VITALS: BP 121/68; PULSE 67; TEMP 97.8
[2018-04-11 07:59] LABS: BASO % 0.6 % (0.0-2.0); EOS # 0.1 K/uL (0.0-0.7); EOS % 0.9 % (0.0-4.0); HEMOGLOBIN 10.8 g/dL (11.0-16.0); LYMPH # 2.5 K/uL (1.0-4.3); LYMPH % 40.6 % (20.0-40.0); MEAN CELL VOLUME 84.2 fL (81.0-99.0); MEAN CORPUSCULAR HEMOGLOBIN 28.4 pg (27.0-31.0); MEAN CORPUSCULAR HGB CONC 33.7 g/dL (33.0-37.0); MEAN PLATELET VOLUME 9.1 fL (7.2-11.7); MONO # 0.5 K/uL (0.0-0.8); MONO % 7.7 % (0.0-10.0); NEUT # 3.1 K/uL (1.8-7.0); NEUT % 50.2 % (50.0-75.0); NRBC % 0.1 % (0.0-2.0); RBC 3.82 Mil/uL (3.80-5.20); RED CELL DISTRIBUTION WIDTH 14.7 % (11.5-14.5); WHITE BLOOD COUNT 6.2 K/uL (4.8-10.8)
[2018-04-11 08:42] LABS: ALBUMIN 3.4 g/dL (3.5-5.0); ALT/SGPT 46 U/L (9-52); AST/SGOT 57 U/L (14-36); BLOOD UREA NITROGEN 16 mg/dL (7-17); CALCIUM 9.1 mg/dl (8.6-10.4); GFR AFRICAN-AMERICAN > 60; GFR NON-AFRICAN AMERICAN > 60
[2018-04-11] MEDS: Saccharomyces Boulardi 250 mg Cap PO SCH (09:23)
--- NOTE | 2018-04-11 13:00 | CP.PCM.DIS ---
Provider - Provider Date of Admission: 04/05/18 17:20 Attending physician: Sharri Schwartz DO Primary care physician: None. Patient to follow up at [facility]. Consults: Dr. Pennie Patel Time Spent in preparation of Discharge (in minutes): 45 Diagnosis - Discharge Diagnosis (1) Hydroureteronephrosis Status: Acute (2) Sepsis Status: Resolved (3) Hyperuricemia Status: Chronic (4) Acute kidney injury Status: Resolved (5) Kidney stone Status: Chronic Hospital Course - Lab Results Lab Results: Micro Results 04/08/18 20:30 Blood-Venous Blood Culture - Preliminary NO GROWTH AFTER 48 HOURS 04/08/18 20:00 Blood-Venous Blood Culture - Preliminary NO GROWTH AFTER 48 HOURS 04/05/18 15:17 Blood Blood Culture - Final NO GROWTH AFTER 5 DAYS 04/05/18 15:17 Blood Gram Stain - Final TEST NOT PERFORMED 04/05/18 15:17 Blood Blood Culture - Final NO GROWTH AFTER 5 DAYS 04/05/18 15:17 Blood Gram Stain - Final TEST NOT PERFORMED 04/08/18 10:59 Urine,Clean Catch Urine Culture - Final No Growth (<1,000 CFU/ML) 04/05/18 19:20 Urine,Clean Catch Urine Culture - Final Escherichia Coli Most Recent Lab Values WBC 6.2 K/uL (4.8-10.8) 04/11/18 07:48 RBC 3.82 Mil/uL (3.80-5.20) 04/11/18 07:48 Hgb 10.8 g/dL (11.0-16.0) L 04/11/18 07:48 Hct 32.1 % (34.0-47.0) L 04/11/18 07:48 MCV 84.2 fL (81.0-99.0) 04/11/18 07:48 MCH 28.4 pg (27.0-31.0) 04/11/18 07:48 MCHC 33.7 g/dL (33.0-37.0) 04/11/18 07:48 RDW 14.7 % (11.5-14.5) H 04/11/18 07:48 Plt Count 268 K/uL (130-400) 04/11/18 07:48 MPV 9.1 fL (7.2-11.7) 04/11/18 07:48 Neut % (Auto) 50.2 % (50.0-75.0) 04/11/18 07:48 Lymph % (Auto) 40.6 % (20.0-40.0) H 04/11/18 07:48 [place] % (Auto) 7.7 % (0.0-10.0) 04/11/18 07:48 Eos % (Auto) 0.9 % (0.0-4.0) 04/11/18 07:48 Baso % (Auto) 0.6 % (0.0-2.0) 04/11/18 07:48 Neut # (Auto) 3.1 K/uL (1.8-7.0) 04/11/18 07:48 Lymph # (Auto) 2.5 K/uL (1.0-4.3) 04/11/18 07:48 [place] # (Auto) 0.5 K/uL (0.0-0.8) 04/11/18 07:48 Eos # (Auto) 0.1 K/uL (0.0-0.7) 04/11/18 07:48 Baso # (Auto) 0.0 K/uL (0.0-0.2) 04/11/18 07:48 Neutrophils % (Manual) 85 % (50-75) H 04/06/18 07:48 Band Neutrophils % 6 % (0-2) H 04/06/18 07:48 Lymphocytes % (Manual) 5 % (20-40) L 04/06/18 07:48 Monocytes % (Manual) 4 % (0-10) 04/06/18 07:48 Platelet Estimate Normal (NORMAL) 04/06/18 07:48 RBC Morphology Normal 04/06/18 07:48 Anisocytosis (manual) Slight 04/05/18 13:36 pO2 21 mm/Hg (30-55) L 04/05/18 18:38 VBG pH 7.34 (7.32-7.43) 04/05/18 18:38 VBG pCO2 41 mmHg (40-60) 04/05/18 18:38 VBG HCO3 20.4 mmol/L 04/05/18 18:38 VBG Total CO2 23.4 mmol/L (22-28) 04/05/18 18:38 VBG O2 Sat (Calc) 37.0 % (40-65) L 04/05/18 18:38 VBG Base Excess -3.5 mmol/L (0.0-2.0) L 04/05/18 18:38 VBG Potassium 4.4 mmol/L (3.6-5.2) 04/05/18 18:38 Sodium 139.0 mmol/l (132-148) 04/05/18 18:38 Chloride 109.0 mmol/L (98-107) H 04/05/18 18:38 Glucose 105 mg/dl (65-105) 04/05/18 18:38 Lactate 1.4 mmol/L (0.7-2.1) 04/05/18 18:38 Sodium 141 mmol/L (132-148) 04/11/18 07:48 Potassium 4.1 mmol/L (3.6-5.2) 04/11/18 07:48 Chloride 107 mmol/L (98-107) 04/11/18 07:48 Carbon Dioxide 22 mmol/L (22-30) 04/11/18 07:48 Anion Gap 16 (10-20) 04/11/18 07:48 BUN 16 mg/dL (7-17) 04/11/18 07:48 Creatinine 0.8 mg/dL (0.7-1.2) 04/11/18 07:48 Est GFR ( Amer) > 60 04/11/18 07:48 Est GFR (Non-Af Amer) > 60 04/11/18 07:48 Random Glucose 112 mg/dL (65-105) H 04/11/18 07:48 Hemoglobin A1c 6.3 % (4.2-6.5) 04/07/18 06:55 Lactic Acid 0.9 mmol/L (0.7-2.1) 04/07/18 00:24 Uric Acid 7.9 mg/dL (2.2-7.5) H 04/07/18 06:55 Calcium 9.1 mg/dl (8.6-10.4) 04/11/18 07:48 Phosphorus 3.5 mg/dL (2.5-4.5) 04/11/18 07:48 Magnesium 2.0 mg/dL (1.6-2.3) 04/11/18 07:48 Total Bilirubin 0.3 mg/dL (0.2-1.3) 04/11/18 07:48 AST 57 U/L (14-36) H D 04/11/18 07:48 ALT 46 U/L (9-52) 04/11/18 07:48 Alkaline Phosphatase 108 U/L (38-126) 04/11/18 07:48 Total Protein 6.7 g/dL (6.3-8.3) 04/11/18 07:48 Total Protein (PEP) 5.3 g/dL (6.1-8.1) L 04/06/18 13:55 Albumin 3.4 g/dL (3.5-5.0) L 04/11/18 07:48 Albumin (PEP) 2.3 g/dL (3.8-4.8) L 04/06/18 13:55 Globulin 3.3 gm/dL (2.2-3.9) 04/11/18 07:48 Albumin/Globulin Ratio 1.0 (1.0-2.1) 04/11/18 07:48 Ataqq-8-Kosstvknq 0.6 g/dL (0.2-0.3) H 04/06/18 13:55 Enwof-1-Mnmzacwkv 0.8 g/dL (0.5-0.9) 04/06/18 13:55 Oiol-2-Shvwgdws 0.4 g/dL (0.4-0.6) 04/06/18 13:55 Wpkk-1-Qxlswhpd 0.4 g/dL (0.2-0.5) 04/06/18 13:55 Gamma Globulins 0.8 g/dL (0.8-1.7) 04/06/18 13:55 Abnorm Protein Band 1 TEST NOT PERFORMED 04/06/18 13:55 Abnorm Protein Band 2 TEST NOT PERFORMED 04/06/18 13:55 Abnorm Protein Band 3 TEST NOT PERFORMED 04/06/18 13:55 Triglycerides 238 mg/dL (0-149) H 04/07/18 06:55 Cholesterol 103 mg/dL (0-199) 04/07/18 06:55 LDL Cholesterol Direct 43 mg/dL (0-129) 04/07/18 06:55 HDL Cholesterol 11 mg/dL (30-70) L 04/07/18 06:55 Lipase 35 U/L (23-300) 04/05/18 13:36 PTH Intact Whole Molec 91 pg/mL (14-64) H 04/06/18 13:55 Venous Blood Potassium 4.4 mmol/L (3.6-5.2) 04/05/18 18:38 Urine Color Straw (YELLOW) 04/09/18 04:27 Urine Clarity Clear (Clear) 04/09/18 04:27 Urine pH 7.0 (5.0-8.0) 04/09/18 04:27 Ur Specific [place] 1.006 (1.003-1.030) 04/09/18 04:27 Urine Protein Negative mg/dL (NEGATIVE) 04/09/18 04:27 Urine Glucose (UA) Normal mg/dL (Normal) 04/09/18 04:27 Urine Ketones Negative mg/dL (NEGATIVE) 04/09/18 04:27 Urine Blood 2+ (NEGATIVE) H 04/09/18 04:27 Urine Nitrate Negative (NEGATIVE) 04/09/18 04:27 Urine Bilirubin Negative (NEGATIVE) 04/09/18 04:27 Urine Urobilinogen Normal mg/dL (0.2-1.0) 04/09/18 04:27 Ur Leukocyte Esterase 1+ Lance/uL (Negative) H 04/09/18 04:27 Urine WBC (Auto) 11 /hpf (0-5) H 04/09/18 04:27 Urine RBC (Auto) 14 /hpf (0-3) H 04/09/18 04:27 Urine WBC Clumps (Auto) Many /hpf (NONE) H 04/05/18 14:37 Ur Squamous Epith Cells < 1 /hpf (0-5) 04/09/18 04:27 Urine Bacteria Rare (<OCC) 04/09/18 04:27 Ur Random Creatinine 116.1 mg/dL 04/05/18 19:20 Ur Random Sodium 45 mmol/L 04/05/18 19:20 Urine HCG, Qual Negative (NEGATIVE) 04/05/18 14:37 KALPANA & SPEP Interp See note 04/06/18 13:55 ZUNILDA Screen Negative (Negative) 04/06/18 13:55 Complement C3 114.0 mg/dL (88.0-165.0) 04/06/18 13:55 Complement C4 33.6 mg/dL (14.0-44.0) 04/06/18 13:55 [place]/Lambda Light Chain (()) 04/06/18 13:55 Free [place] Light Chains 44.8 mg/L (3.3-19.4) H 04/06/18 13:55 Free Lambda Light Chain 35.6 mg/L (5.7-26.3) H 04/06/18 13:55 Free [place]/Lambda Ratio 1.26 (0.26-1.65) 04/06/18 13:55 RPR Nonreactive (NONREACTIVE) 04/06/18 13:55 Hepatitis A IgM Ab Negative (NEGATIVE) 04/06/18 13:55 Hep Bs Antigen Negative (NEGATIVE) 04/06/18 13:55 Hep B Core IgM Ab Negative (NEGATIVE) 04/06/18 13:55 Hepatitis C Antibody Negative (NEGATIVE) 04/06/18 13:55 HIV 1&2 Antibody Screen Negative (NEGATIVE) 04/06/18 13:55 - Hospital Course Hospital Course: PMH: nephrolithiasis, hypertension (from chart review) PSxH: unspecified kidney surgery 2011, uretal stent placement 2015, lithotripsy 2015 Home Meds: Tylenol 500mg po qid Allergies: NKDA FamHx: Mother PA @ 74yo - , Father unknown, Sister breast CA with mastectomy @ 48yo - alive SocHx: denies ever tobacco, illicit drugs, social alcohol <4 drinks/month. Lives in house with daughter and grandkids LMP: 02/28, still getting regular menstrual periods. Due to start this week. Full Code On admission: Ms. Mercado is a 47 year old female PMH nephrolithiasis who comes in to the [facility] ED today for fever, chills, and right sided abdominal pain x5 days. She lives in a constant state of pain in her abdomen and head for which she takes 4 Extra Strength Tylenol every day. Her constant subjective fever started on Monday night, 5 days ago. Since then, she's felt chills, increased headache proportional to her fluctuating abdominal pain. It originates in her right back, radiating around the side toward the right upper quadrant, ending at midline. It does not radiate across to the left, or down toward her groin. When the pain is especially bad, she admits chest pain, palpitations, and short of breath. She currently rates the pain 5/10, but states it is 9/10 pain at it's worst. She describes the pain as someone pulling her organs around her insides. It was not relieved by her normal Tylenol, nor additional Motrin. She has been unable to keep down food or drink for this time despite feeling hungry and thirsty. She vomits approximately 7 times a day whatever she eats or drinks. Admits to diaphoresis, weakness, fatigue, dizziness , lightheadedness, dry cough, dysphagia, 30lb weight loss this year. Denies hematematous, hematuria, hematochezia, melena, dysuria, change in frequency, odynophagia, recent travel, sick contacts. During hospital stay: Patient was admitted for sepsis secondary to pyelonephritis secondary to nephrolithiasis. CT abdomen/pelvis was done which showed moderate to severe hydronephrosis with 3x3x5 right proximal ureter calculus with extensive perniphric stranding. Renal U/S showed bilateral hydropnephrosis with left sided renal cyst with indwelling left double IJ ureteral stent and 1.8 cm midpole calculus. KUB did not show stone on the right but confirmed the double j stent and calculus on the left. Renal Scan showed evidence of obstructive uropathy on the right. Urine Culture shows ESBL E. coli that is sensitive to Meropenem. She was started on meropenem 1 gm IV Q8H. Blood cultures are negative up to date. Repeat Urine Culture ordered for 04/08/[address] shows no growth. Urology Dr. Casper recommended to treat the pyelonephritis and patient will need lithotripsy arrangement by [facility] Nephrology Dr. Patel recommended renal failure workup for patient. C3, C4, Hepatitis Panel, HIV, ZUNILDA screen, RPR were normal/negative. Repeat ultrasound showed moderate bilateral hydronephrosis. ID Dr. Taylor recommended discharging patient with Invanz. She was given one dose and monitored overnight. Patient was also placed on Allopurinol 100 mg PO 1x/day and Colchicine 0.6 mg PO 1x/day (for 5 doses with last dose on 04/12/18) to prevent precipitation of gout attack. 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 She was instructed to have the nevus be biopsied as an outpatient. Patient is stable for discharge home. All instructions are explained below. Patient to return to the ER if symptoms return. - Patient is to report to the [facility] infusion center on 04/12 at 10: 00 AM for continued daily antibiotic infusions. - Patient will need weekly labs to monitor her while on Invanz to complete on April 28 for 21 day treatment. Patient to have weekly labs to be drawn while on antibiotic by infectious disease. Patient upon conclusion of IV abx should have PICC line removed. - Patient to follow-up and establish care at the [facility] in [place] at [address] [facility], Phone number to contact for an appointment is [phone]. -Patient understands that the surgery she requires is expensive. Patient recommend for outpatient at [facility] for obstructing stone 3X3X5 mm proximal ureteral stone w mild to moderate right hydronephorsis. Patient will need follow-up with urology. She understands that stone can act as a site of infection even after completing IV abx. -Note: patient will need follow-up with clinic for noted atypical nevus for skin biopsy for further evaluation. -Patient to call and make an appointment with Dr. Patel at [facility] as soon as possible after discharge. -Scripts:Patient was given prescriptions for flomax 0.4mg PO daily (30tabs/0) , Allopurinol 100mg (1 tab/0), and antibiotic to be setup prior to discharge. *This is a summary of hospital events. Please refer to EMR for full hospitalization details. - Date & Time of H&P Date of H&P: 04/05/18 Time of H&P: 20:03 Discharge Exam - Head Exam Head Exam: ATRAUMATIC, NORMOCEPHALIC - Eye Exam Eye Exam: EOMI, Normal appearance - Neck Exam Neck exam: Normal Inspection - Respiratory Exam Respiratory Exam: NORMAL BREATHING PATTERN, UNREMARKABLE - GI/Abdominal Exam GI & Abdominal Exam: Normal Bowel Sounds, Unremarkable - Back Exam Back exam: NORMAL INSPECTION - Neurological Exam Neurological exam: Alert, CN II-XII Intact, Oriented x3 - Psychiatric Exam Psychiatric exam: Normal Affect, Normal Mood - Skin Skin Exam: Dry, Intact, Normal Color Discharge Plan - Discharge Medications Prescriptions: Allopurinol [Zyloprim] 100 mg PO DAILY #30 tab Saccharomyces Boulardi [Florastor] 250 mg PO BID #60 cap Tamsulosin [Flomax] 0.4 mg PO DAILY #30 cap - Follow Up Plan Condition: IMPROVED Disposition: HOME/ ROUTINE Instructions: Saccharomyces boulardii, Peripherally-Inserted Central Catheter, Hydronephrosis, Adult (DC), Allopurinol, Ertapenem, Tamsulosin, Low Purine Diet , Sepsis (DC), Sepsis (GEN) Additional Instructions: Patient is stable for discharge home. All instructions are explained below. Patient to return to the ER if symptoms return. - Patient is to report to the [facility] infusion center on 04/12 at 10: 00 AM for continued daily antibiotic infusions. - Patient will need weekly labs to monitor her while on Invanz to complete on April 28 for 21 day treatment. Patient to have weekly labs to be drawn while on antibiotic by infectious disease. Patient upon conclusion of IV abx should have PICC line removed. - Patient to follow-up and establish care at the [facility] in [place] at [address] [facility], Phone number to contact for an appointment is [phone]. -Patient understands that the surgery she requires is expensive. Patient recommend for outpatient at the [facility] for obstructing stone 3X3X5 mm proximal ureteral stone w mild to moderate right hydronephorsis. Patient will need follow-up with urology. She understands that stone can act as a site of infection even after completing IV abx. -Note: patient will need follow-up with clinic for noted atypical nevus for skin biopsy for further evaluation. -Patient to call and make an appointment with Dr. Patel at [facility] as soon as possible after discharge. -Scripts:Patient was given prescriptions for flomax 0.4mg PO daily (30tabs/0) , Allopurinol 100mg (1 tab/0), and antibiotic to be setup prior to discharge. El paciente est estable para el brian domiciliaria. Todas las instrucciones se explican a continuacin. Paciente para regresar a la evan de emergencias si los sntomas regresan. - El paciente debe presentarse en el centro de infusin de [facility] el 8/ 2 a las 10:00 a.m. para continuar con las infusiones diarias de antibiticos. - El paciente necesitar laboratorios semanales para controlarla mientras est en Invanz y completar el 18 de connor para un tratamiento de 21 mills. Paciente para tener laboratorios semanales para ser extrado fer el tratamiento con antibiticos por enfermedad infecciosa. El paciente al trmino de IV abx debe tener marco lnea PICC removida. - Paciente para doni seguimiento y establecer atencin en la clnica de [facility] del [facility] en [place] en [address] [facility] de tel fono para contactar marco merry es [phone]. -Patient entiende que la ciruga que huyen requiere es costosa. El paciente recomienda para paciente ambulatorio en el [facility] obstruir nevaeh 3X3X5 mm ureteral proximal con hidronefrisis derecha leve a moderada. El paciente necesitar seguimiento con urologa. Huyen entiende que la nevaeh puede actuar jesús un sitio de infeccin incluso despus de completar IV abx. -Nota: el paciente necesitar un seguimiento con la clnica para detectar nevo atpico para biopsia de piel para marco evaluacin adicional. -Paciente para llamar y programar marco merry con el Dr. Patel en la clnica de [place] lo antes posible despus del brian. -Guas: al paciente se le recetaron flomax 0,4 mg PO todos los mills (30 partes / 0), alopurinol 100 mg (1 tableta / 0) y antibitico antes de la configuracin para descargar Referrals: [facility] at [facility] [Outside] Chin Casper MD [Staff Provider] - Gamaliel Taylor MD [Staff Provider] - Daniel Patel MD [Staff Provider] -
== END 2018-04-11 13:30 | disposition home or self-care (01) | DRG 872 ==
LOC: C.ER 12:36 → C.9E 17:20 → C.6T 19:07 → C.5S 04-09 04:09
PROVIDERS: ADMIT Hospitalist; ATTEND Hospitalist
PROC: 02HV33Z Insertion of Infusion Device into Superior Vena Cava, Percutaneous Approach (ICD-10-PCS; principal; 2018-04-10)
DX: A41.9 Sepsis, unspecified organism (principal); N13.2 Hydronephrosis with renal and ureteral calculous obstruction; N17.9 Acute kidney failure, unspecified; R65.20 Severe sepsis without septic shock; I10 Essential (primary) hypertension; E88.81 Metabolic syndrome and other insulin resistance; E66.9 Obesity, unspecified; Z68.39 Body mass index [BMI] 39.0-39.9, adult; Z80.3 Family history of malignant neoplasm of breast; Z87.442 Personal history of urinary calculi; N13.9 Obstructive and reflux uropathy, unspecified; B96.20 Unspecified Escherichia coli [E. coli] as the cause of diseases classified elsewhere; D22.9 Melanocytic nevi, unspecified